=== PATIENT | female | born 1995 | race Caucasian/White ===

== ENCOUNTER 2017-12-03 10:31 | Emergency (ER) | payer BC, OTHER ==
[2017-12-03 10:50] VITALS: BP 101/71
--- NOTE | 2017-12-03 16:23 | UC ---
Geno Sarah Nilda, scribed for Phuc De Leon MD on 12/03/17 at 1104 . FLU HPI - HPI Summary HPI Summary: This patient is a 22 year old F presenting to [facility] with a chief complaint of constant flu-like symptoms since last night. The patient rates the aching pain 5 /10 in severity. Symptoms aggravated and alleviated by nothing. Patient reports body aches, rhinorrhea, sore throat, nonproductive cough, and fever (102F, last night). Flu vaccine is not UTD. - History of Current Complaint Chief Complaint: UCRespiratory Stated Complaint: FEVER, AND COUGH Time Seen by Provider: 12/03/17 10:53 Hx Obtained From: Patient Hx Last Menstrual Period: 11/21/17 Onset/Duration: Sudden Onset, Lasting Days, Still Present Severity Initially: Moderate Pain Intensity: 5 Pain Scale Used: 0-10 Numeric Associated Signs & Symptoms: Positive: Fever, T Max - 102 F, Myalgia, Cough, Sore Throat - Allergy/Home Medications Allergies/Adverse Reactions: Allergies Allergy/AdvReac Type Severity Reaction Status Date / Time MS Diphenhydramine AdvReac Intermediate BP INCREASE Verified 12/03/17 10:50 [From Benadryl] Home Medications: Home Medications Ibuprofen [Advil] 400 mg PO ONCE PRN 12/03/17 [History Confirmed 12/03/17] PMH/Surg Hx/FS Hx/Imm Hx Endocrine History: Hypothyroidism Psychological History: Anxiety, Depression - Surgical History Surgical History: Yes Surgery Procedure, Year, and Place: Tonsillectomy 2012 - Family History Known Family History: Positive: Hypertension - Social History Alcohol Use: None Substance Use Type: None Smoking Status (MU): Never Smoked Tobacco Review of Systems Constitutional: Fever ENT: Sore Throat, Nasal Discharge Respiratory: Cough Musculoskeletal: Myalgia All Other Systems Reviewed And Are Negative: Yes Physical Exam Triage Information Reviewed: Yes Vital Signs: Initial Vital Signs Temp 99.4 F 12/03/17 10:42 Pulse 107 12/03/17 10:42 Resp 16 12/03/17 10:42 BP 101/71 12/03/17 10:42 Pulse Ox 95 12/03/17 10:42 Vital Signs Reviewed: Yes - Additional Comments VITAL SIGNS: Reviewed. GENERAL: Patient is a well developed and nourished F who is lying comfortable in the stretcher. Patient is not in any acute respiratory distress. HEAD AND FACE: Normocephalic EYES: PERRLA, EOMI x 2. EARS: Hearing grossly intact. NOSE: Runny nose MOUTH: pharyngeal erythema NECK: Supple, trachea is midline, no adenopathy, no JVD, no carotid bruit. CHEST: Symmetric, no tenderness at palpation LUNGS: Clear to auscultation bilaterally. No wheezing or crackles. CVS: Regular rate and rhythm, S1 and S2 present, no murmurs or gallops appreciated. ABDOMEN: Soft, non-tender. Bowel sounds are normal. No abdominal abnormal pulsations. EXTREMITIES: Full ROM in all major joints, no edema, no cyanosis or clubbing. NEURO: Alert and oriented x 3. No acute neurological deficits. Speech is normal and follows commands. SKIN: Dry and warm Re-Evaluation - Re-Evaluation First Eval Re-Evaluation Time: 11:19 Comment: Reviewed test results with patient as well as plan to D/C. Flu Course/Dx - Course Course Of Treatment: This patient is a 22 year old F presenting to [facility] with a chief complaint of constant flu-like symptoms since last night. The patient rates the aching pain 5/10 in severity. Symptoms aggravated and alleviated by nothing. Patient reports body aches, rhinorrhea, sore throat, nonproductive cough, and fever (102F, last night). Flu vaccine is not UTD. Influenza A positive. Influenza B negative. Medications given. I discussed all the findings and test results with the patient. Patient was instructed to return to the urgent care or go to ER immediately if any of the symptoms return or worsens. Plan of care was discussed with the patient and patient understands and agrees. All questions were answered to patient satisfaction. There were no further complaints or concerns. Patient is D/C with Dx of influenza. - Differential Dx/Diagnosis Differential Diagnosis/HQI/PQRI: Bronchitis, Broncholiolitis, Influenza, Pneumonia, Upper Respiratory Infection Provider Diagnoses: influenza Discharge - Discharge Plan Condition: Stable Disposition: HOME Prescriptions: Oseltamivir CAP* [Tamiflu CAP*] 75 mg PO BID #10 cap Patient Education Materials: Influenza (ED) Referrals: Chip Abraham MD [Primary Care Provider] - Additional Instructions: Take medications as instructed Increase your fluid intake Return to the if symptoms worsen The documentation as recorded by the scribGeno dawn Nilda accurately reflects the service I personally performed and the decisions made by me, Phuc De Leon MD.
== END 2017-12-03 11:30 | disposition home or self-care (01) ==
LOC: UCEAST 10:31
DX: J11.1 Influenza due to unidentified influenza virus with other respiratory manifestations (principal); E03.9 Hypothyroidism, unspecified
CPT/HCPCS: 87502; 99212; G0463

== ENCOUNTER 2018-10-09 10:23 | Emergency (ER) | payer BC ==
[2018-10-09 10:36] VITALS: BP 109/64
--- NOTE | 2018-10-09 11:36 | ED ---
Respiratory - HPI Summary HPI Summary: 22 yo white female c/o nasal congestion, sinus pain and yellow d/c x weeks that is worsening associated withmylagias, f/c/n/v. Denies cough - History of Current Complaint Chief Complaint: UCRespiratory Stated Complaint: CONGESTED,VOMITING Time Seen by Provider: 10/09/18 11:01 Hx Obtained From: Patient Onset/Duration: Lasting Weeks Initial Severity: Moderate Current Severity: Severe Pain Intensity: 0 Sputum Amount: None Aggravating Factor(s): Nothing Alleviating Factor(s): Nothing Associated Signs and Symptoms: Fever, Sinus Infection, Nasal Congestion - Allergy/Home Medications Allergies/Adverse Reactions: Allergies Allergy/AdvReac Type Severity Reaction Status Date / Time diphenhydramine Allergy htn Verified 10/09/18 10:36 [From Charles] PMH/Surg Hx/FS Hx/Imm Hx Endocrine/Hematology History: Reports: Hx Thyroid Disease - hypo Respiratory History: Reports: Hx Sleep Apnea - POSSIBLE Sensory History: Reports: Hx Contacts or Glasses Denies: Hx Hearing Aid Opthamlomology History: Reports: Hx Contacts or Glasses Neurological History: Reports: Hx Headaches, Hx Migraine - 1 Q 3 MONTHS Psychiatric History: Reports: Hx Anxiety - ON MEDS, Hx Depression - ON MEDS - Surgical History Surgery Procedure, Year, and Place: Tonsillectomy 2013 Hx Anesthesia Reactions: No Infectious Disease History: No Infectious Disease History: Denies: Traveled Outside the [place] in Last 30 Days - Family History Known Family History: Positive: Hypertension - Social History Alcohol Use: None Substance Use Type: Reports: None Smoking Status (MU): Never Smoked Tobacco Review of Systems Constitutional: Negative Eyes: Negative ENT: Other - SINUS INFECTION Positive: Nasal Discharge Cardiovascular: Negative Respiratory: Negative Gastrointestinal: Negative Genitourinary: Negative Musculoskeletal: Negative Skin: Negative Neurological: Negative All Other Systems Reviewed And Are Negative: Yes Physical Exam - Summary Physical Exam Summary: Vital Signs Reviewed: Yes Skin: Positive: Warm Head/Face: Positive: Normal Head/Face Inspection Eyes: Positive: Normal ENT: Positive: swollen eyrthematous turbinates with purulent d/c, TM WNL Neck: Positive: Supple Respiratory/Lung Sounds: Positive: Clear to Auscultation Cardiovascular: Positive: Normal, RRR, S1, S2 Abdomen Description: Positive: Nontender Musculoskeletal: Positive: Normal Neurological: Positive: Normal Psychiatric: Positive: Normal, Affect/Mood Appropriate Vital Signs On Initial Exam: Initial Vitals Temp Pulse Resp BP Pulse Ox 37.2 C 102 20 109/64 99 10/09/18 10:34 10/09/18 10:34 10/09/18 10:34 10/09/18 10:34 10/09/18 10:34 Diagnostics - Vital Signs Vital Signs Temp Pulse Resp BP Pulse Ox 10/09/18 10:34 37.2 C 102 20 109/64 99 - Laboratory Lab Statement: Any lab studies that have been ordered have been reviewed, and results considered in the medical decision making process. Disposition - Diagnoses Provider Diagnoses: Recurrent sinus infections, Fever and chills Discharge - Sign-Out/Discharge Documenting (check all that apply): Patient Departure All imaging exams completed and their final reports reviewed: Yes - Discharge Plan Condition: Stable Disposition: HOME Prescriptions: Cefuroxime 500 MG(NF) 500 mg PO BID 14 Days #1 tab Fluticasone NASAL SPRAY 50MCG* [Flonase NASAL SPRAY 50MCG*] 2 spray BOTH NARES DAILY 7 Days #1 btl Patient Education Materials: Sinusitis (ED), Rhinosinusitis (ED) Forms: *Work Release Referrals: Chip Abraham MD [Primary Care Provider] - - Billing Disposition and Condition Condition: STABLE Disposition: Home
== END 2018-10-09 11:44 | disposition home or self-care (01) ==
LOC: UCEAST 10:23
DX: J01.91 Acute recurrent sinusitis, unspecified (principal); R50.9 Fever, unspecified; I10 Essential (primary) hypertension; Z88.8 Allergy status to other drugs, medicaments and biological substances
CPT/HCPCS: 99212; G0463

== ENCOUNTER 2019-09-04 12:19 | Emergency (ER) | payer BC ==
[2019-09-04 12:33] VITALS: BP 112/68
[2019-09-04] MEDS ORDERED: Ondansetron ODT TAB* 4 MG PO ONE ×2 (12:46→14:15)
--- NOTE | 2019-09-04 12:46 | UC ---
Headache HPI - HPI Summary HPI Summary: Onset of right sided headache 5 days ago, awoke with it, with progression of pain. Has nausea and light sensitivity, with onset of vomiting yesterday, with several episodes today. No previous history of migraine - History Of Current Complaint Chief Complaint: UCHeadache Stated Complaint: HEADACHE Time Seen by Provider: 09/04/19 12:39 Hx Obtained From: Patient Hx Last Menstrual Period: 08/29/19 Onset/Duration: Sudden Onset Onset Of Symptoms: Still Present Initially Headache Was: "Worst Headache Ever" Pain Intensity: 10 Timing: Constant Character: Migraine - Assesses this a a migraine headache, although she has no prior diagnosis Location of Headache: Temporal - right Aggravating Factor(s): Exertion, Position Change, Bright Lights Allevating Factor(s): Rest Associated Signs And Symptoms: Positive: Nausea, Vomiting. Negative: Neck Pain , Neck Stiffness - Risk Factors SAH Risk Factors: Negative Meningitis Risk Factors: Negative SDH Risk Factors: Negative Temporal Arteritis Risk Factors: Female - Allergies/Home Medications Allergies/Adverse Reactions: Allergies Allergy/AdvReac Type Severity Reaction Status Date / Time diphenhydramine Allergy htn Verified 09/04/19 12:27 [From Benadryl] Home Medications: Home Medications Escitalopram * [Lexapro *] 25 mg PO DAILY 09/04/19 [History Confirmed 09/04/19] PMH/Surg Hx/FS Hx/Imm Hx Previously Healthy: Yes Psychological History: Depression - Surgical History Surgical History: Yes Surgery Procedure, Year, and Place: Tonsillectomy 2012 - Family History Known Family History: Positive: Hypertension, Other - sister has migrane. - Social History Occupation: Employed Full-time Alcohol Use: None Substance Use Type: None Smoking Status (MU): Never Smoked Tobacco Review of Systems All Other Systems Reviewed And Are Negative: Yes Constitutional: Positive: Fatigue Skin: Positive: Negative Eyes: Positive: Blurred Vision - right eye ENT: Positive: Negative Respiratory: Positive: Negative Cardiovascular: Positive: Negative Gastrointestinal: Positive: Vomiting, Nausea Genitourinary: Positive: Negative, Other - recent normal menses, no contraceptive use Motor: Positive: Negative Neurovascular: Positive: Other - diffuse bilateral paresthesias arms and legs Musculoskeletal: Positive: Negative Neurological: Positive: Headache, Paresthesia Psychological: Positive: Negative Is Patient Immunocompromised?: No Physical Exam Triage Information Reviewed: Yes Appearance: Well-Appearing, Pain Distress - moderate to severe Vital Signs: Initial Vital Signs Temp 98.2 F 09/04/19 12:28 Pulse 82 09/04/19 12:28 Resp 18 09/04/19 12:28 BP 112/68 09/04/19 12:28 Pulse Ox 100 09/04/19 12:28 Eye Exam: Other - JENNIFER without photophobia. Eyes: Positive: Conjunctiva Clear ENT: Positive: Pharynx normal Neck: Positive: Supple, Nontender, No Lymphadenopathy Respiratory: Positive: Lungs clear, Normal breath sounds Cardiovascular: Positive: RRR, No Murmur Abdomen Description: Positive: Nontender, No Organomegaly, Soft Musculoskeletal Exam: Normal Musculoskeletal: Positive: Strength Intact Neurological Exam: Other - CNII-XII normal. No pronator drift. Negative Romberg' s. Neurological: Positive: Alert, Muscle Tone Normal Psychological Exam: Normal Re-Evaluation - Re-Evaluation First Eval Re-Evaluation Time: 14:05 Change: Improved Comment: nausea decreased but no improvement in headache. Headache Course/Dx - Course Course Of Treatment: Clincal course consistent with classic migraine. Has not responded to use of zofran and toradol. Will continue with zofran, try hydrocodone to break migraine cycle. Reluctant to use triptan due to use of escitaloprim. Drove alone to visit, so medication options restricted by sedation. - Differential Dx/Diagnosis Differential Diagnosis/HQI/PQRI: Migraine, Temporal Arteritis Provider Diagnosis: Migraine Discharge ED - Sign-Out/Discharge Documenting (check all that apply): Patient Departure All imaging exams completed and their final reports reviewed: Yes - Discharge Plan Condition: Stable Disposition: HOME Patient Education Materials: Migraine Headache (ED) Forms: *Work Release Referrals: No Primary Care Phys,NOPCP [Primary Care Provider] - Additional Instructions: To break the headache cycle, please try the following: once at home, take an additional dose of zofran 4mg. After about 15 minutes, take 2 hydrocodone tablets. This will likely cause drowsiness, and resting/ sleeping for several hours would be helpful. Eat lightly. Schedule a follow up visit with your primary care physician later this week to discuss migraine management. - Billing Disposition and Condition Condition: STABLE Disposition: Home
[2019-09-04] MEDS ORDERED: Ketorolac *IM* INJ* 60 MG/2 ML VIAL IM ONE (12:47)
[2019-09-04] MEDS ORDERED: Ondansetron TAB* 4 MG PO ONE (12:50)
[2019-09-04] MEDS ORDERED: Ondansetron ODT TAB* 4 MG ONE (13:33)
[2019-09-04] MEDS ORDERED: HYDROcodone/ACETAMIN 5-325 MG* 1 TAB PO ONE (14:16)
== END 2019-09-04 14:47 | disposition home or self-care (01) ==
LOC: UCEAST 12:19
DX: G43.909 Migraine, unspecified, not intractable, without status migrainosus (principal); F32.9 Major depressive disorder, single episode, unspecified; Z79.899 Other long term (current) drug therapy; Z88.8 Allergy status to other drugs, medicaments and biological substances; Z82.0 Family history of epilepsy and other diseases of the nervous system
CPT/HCPCS: 70450; 99212; A9270-GY; G0463; J1885

== ENCOUNTER 2019-09-11 17:19 | Emergency (ER) | payer BC ==
--- NOTE | 2019-09-11 19:11 | ED ---
Headache - HPI Summary HPI Summary: Patient is a 23 y/o F presenting to the ED for a chief complaint of headache. Patient is present with her grandparents. Patient states that on 08/28/19, her symptoms began after cleaning her carpet with shampoo. Since then, she reports intermittent vision loss in the right eye, blurred vision, nausea, vomiting, and right-sided neck pain. In the morning, she has bilateral LE and UE weakness and bilateral UE numbness which resolves. She denies fever, diarrhea, or constipation. When she goes inside her house from being outside, her symptoms worsen. Her symptoms improve after being away from her house. She was previously seen at an urgent care and her PCP. At that time, she had a brain CT with unremarkable findings. LNMP was on 09/01/19. Patient lives alone. She has a carbon monoxide monitor at home. She denies a PMHx or tick bites. PSHx is significant for tonsillectomy. She denies tobacco, alcohol, or drug use. Medications reviewed. Allergies noted. - History Of Current Complaint Chief Complaint: EDHeadache Stated Complaint: GENERAL ILLNESS PER PT Time Seen by Provider: 09/11/19 18:49 Hx Obtained From: Patient Hx Last Menstrual Period: 08/29/19 Onset/Duration: Sudden Onset, Still Present Initially Headache Was: Moderate Currently Pain Is: Moderate Timing: Constant Location of Headache: Frontal Aggravating Factor: Other - Being at home Allevating Factors: Other (Noted In Comments) - Leaving home Associated Signs And Symptoms: Nausea, Vomiting, Neck Pain, Visual Changes - Allergies/Home Medications Allergies/Adverse Reactions: Allergies Allergy/AdvReac Type Severity Reaction Status Date / Time diphenhydramine Allergy htn Verified 09/04/19 12:27 [From Benadryl] PMH/Surg Hx/FS Hx/Imm Hx Previously Healthy: Yes Endocrine/Hematology History: Reports: Hx Thyroid Disease - hypo Denies: Hx Diabetes Cardiovascular History: Denies: Hx Hypercholesterolemia, Hx Hypertension Respiratory History: Reports: Hx Sleep Apnea - POSSIBLE Sensory History: Reports: Hx Contacts or Glasses Denies: Hx Legally Blind, Hx Deafness, Hx Hearing Aid Opthamlomology History: Reports: Hx Contacts or Glasses Denies: Hx Legally Blind EENT History: Denies: Hx Deafness Neurological History: Reports: Hx Headaches, Hx Migraine - 1 Q 3 MONTHS Psychiatric History: Reports: Hx Anxiety - ON MEDS, Hx Depression - ON MEDS - Surgical History Surgical History: Yes Surgery Procedure, Year, and Place: Tonsillectomy 2012 Hx Anesthesia Reactions: No - Immunization History Date of Tetanus Vaccine: utd Date of Influenza Vaccine: fall 2017 Infectious Disease History: No Infectious Disease History: Denies: Traveled Outside the [place] in Last 30 Days - Family History Known Family History: Positive: Hypertension, Other - sister has migrane. - Social History Occupation: Employed Full-time Lives: Alone Alcohol Use: Rare Hx Substance Use: No Substance Use Type: Reports: None Hx Tobacco Use: No Smoking Status (MU): Never Smoked Tobacco Review of Systems Negative: Fever Positive: Blurred Vision - Right eye, Other - Positive intermittent vision loss in right eye Positive: Vomiting, Nausea, Other - Negative constipation. Negative: Diarrhea Positive: Myalgia - Right-sided neck pain Positive: Headache, Weakness - Bilateral UE and LE, Numbness - Bilateral UE All Other Systems Reviewed And Are Negative: Yes Physical Exam - Summary Physical Exam Summary: Constitutional: Well-developed, Well-nourished, Alert. (-) Distressed Skin: Warm, Dry HENT: Normocephalic; Atraumatic Eyes: Conjunctiva normal Neck: Musculoskeletal ROM normal neck. (-) JVD, (-) Stridor, (-) Tracheal deviation Cardio: Rhythm regular, rate normal, Heart sounds normal; Intact distal pulses; Radial pulses are 2+ and symmetric. (-) Murmur Pulmonary/Chest wall: Effort normal. (-) Respiratory distress, (-) Wheezes, (-) Rales Abd: Soft, (-) tenderness, (-) Distension, (-) Guarding, (-) Rebound Musculoskeletal: (-) Edema Lymph: (-) Cervical adenopathy Neuro: Alert, Oriented x3 Psych: Mood and affect Normal Triage Information Reviewed: Yes Vital Signs On Initial Exam: Initial Vitals Temp Pulse Resp BP Pulse Ox 97.3 F 66 18 136/71 100 09/11/19 17:20 09/11/19 17:20 09/11/19 17:20 09/11/19 17:20 09/11/19 17:20 Vital Signs Reviewed: Yes Procedures - Sedation Patient Received Moderate/Deep Sedation with Procedure: No Diagnostics - Vital Signs Vital Signs Temp Pulse Resp BP Pulse Ox 09/11/19 17:20 97.3 F 66 18 136/71 100 - Laboratory Result Diagrams: 09/11/19 19:22 09/11/19 19:22 Lab Statement: Any lab studies that have been ordered have been reviewed, and results considered in the medical decision making process. Headache Course/Dx - Course Course Of Treatment: Patient is here with headaches that are worse in the morning and only occur at home. Patient wakes up with numbness and discoordination in all 4 of her extremities. The symptoms all go away when she leaves the house. Patient has had a negative CT brain as an outpatient. Patient is asymptomatic with a normal neurologic exam here. Patient had a CBC, CMP, TSH, test, B12 level sent. Patient's labs were all unremarkable. Patient was encouraged to check her carbon monoxide detector, try sleeping at someone else's house to see if her symptoms go away, and was given Dr. Lopes's number for follow-up. - Diagnoses Provider Diagnoses: Headache Discharge ED - Sign-Out/Discharge Documenting (check all that apply): Patient Departure - Discharge - Discharge Plan Condition: Stable Disposition: HOME Patient Education Materials: General Headache (ED) Referrals: [facility] [Outside] Robyn Guerrero MD [Medical Doctor] - Additional Instructions: Do an experiment of spending the night in someone else's house to see if it improves your headache. Make sure the carbon dioxide detector at home is working. Come back if you have weakness on one side of your body, slurred speech , or any other concerning symptoms. PLEASE RETURN TO EMERGENCY DEPARTMENT FOR ANY NEW OR WORSENING SYMPTOMS. Please follow up with your primary care physician and a neurologist. Please make all follow-ups in 1-3 days unless I advise you otherwise. - Billing Disposition and Condition Condition: STABLE Disposition: Home - Attestation Statements Document Initiated by Scribe: Yes Documenting Scribe: Shruthi Peter Provider For Whom Tara is Documenting (Include Credential): Kiran Maldonado MD Scribe Attestation: Shruthi Sarah, scribed for Kiran Maldonado MD on 09/11/19 at 2110. Scribe Documentation Reviewed: Yes Provider Attestation: The documentation as recorded by the Shruthi ugarte accurately reflects the service I personally performed and the decisions made by me, Kiran Maldonado MD Status of Scribe Document: Viewed NIH Scale - NIH Scale Level of Consciousness: Alert/Keenly Responsive Ask Patient the Month and His/Her Age: Both Correct Ask Pt to Open/Close Eyes and [employer] Clerk/Release Non-Paretic Hand: Both Correctly Best Gaze (Only Horizontal Eye Movement): Normal Visual Field Testing: No Visual Loss Facial Paresis-Pt to Smile & Close Eyes or Grimace Symmetry: Normal/Symmetrical Motor Function - Right Arm: No Drift-Holds 10 Seconds Motor Function - Left Arm: No Drift-Holds 10 Seconds Motor Function - Right Leg: No Drift-Holds 10 Seconds Motor Function - Left Leg: No Drift-Holds 10 Seconds Limb Ataxia-Must be out of Proportion to Weakness Present: Absent Sensory (Use Pinprick to Test Arms/Legs/Trunk/Face): Normal Best Language (Describe Picture, Name Items): No Aphasia Dysarthria (Read Several Words): Normal Extinction and Inattention: No Abnormality Total Score: 0
[2019-09-11 19:28] LABS: ABS Basophils 0.1 10^3/ul (0-0.2); ABS Eosinophils 0.1 10^3/ul (0-0.6); ABS Monocytes 0.7 10^3/ul (0-0.8); ABS Neutrophils 6.6 10^3/ul (1.5-7.7); Eosinophil % 0.5 %; Hematocrit 41 % (35-47); Hemoglobin 14.3 g/dL (12.0-16.0); Lymphocyte % 21.1 %; Mean Corpuscular HGB Conc 35 g/dL (31-36); Mean Corpuscular Hemoglobin 31 pg (27-31); Mean Corpuscular Volume 87 fL (80-97); Mean Platelet Volume 8.8 fL (7.4-10.4); Nucleated Red Blood Cells % 0.1; Platelet Count 249 10^3/uL (150-450); Red Cell Distribution Width 12 % (10-15); White Blood Count 9.5 10^3/uL (3.5-10.8)
[2019-09-11 19:42] LABS: Albumin 5.2 g/dL (3.2-5.2); Anion Gap 6 mmol/L (2-11); CO2 Carbon Dioxide 30 mmol/L (22-32); Calcium 10.4 mg/dL (8.6-10.3); Chloride 102 mmol/L (101-111); Sodium 138 mmol/L (135-145)
[2019-09-11 19:48] LABS: ALT 12 U/L (7-52); AST 14 U/L (13-39); Albumin/Globulin Ratio 1.9 (1-3); Alkaline Phosphatase 72 U/L (34-104); BUN/Creatinine Ratio 14.9 (8-20); Blood Urea Nitrogen 10 mg/dL (6-24); EGFR African American 130.8 (>60); EGFR Non-African American 108.1 (>60); Globulin 2.7 g/dL (2-4); Glucose 87 mg/dL (70-100); Total Protein 7.9 g/dL (6.4-8.9)
[2019-09-11 20:44] LABS: HCG Pregnancy < 0.60 mIU/mL
[2019-09-11 20:47] LABS: TSH (Thyroid Stimulating Horm) 1.03 mcIU/mL (0.34-5.60)
[2019-09-11 20:57] VITALS: BP 118/75
== END 2019-09-11 20:57 | disposition home or self-care (01) ==
LOC: ED 17:19
DX: R51 Headache (principal); E03.9 Hypothyroidism, unspecified; F41.9 Anxiety disorder, unspecified; F32.9 Major depressive disorder, single episode, unspecified; Z79.899 Other long term (current) drug therapy; Z88.8 Allergy status to other drugs, medicaments and biological substances
CPT/HCPCS: 36415; 80053; 82375; 82607; 84443; 84702; 85025; 99282

== ENCOUNTER 2019-09-12 11:38 | Observation (INO) | payer BC ==
[2019-09-12] MEDS ORDERED: Ketorolac INJ* 30 MG/ML 1 ML VIAL IV ONE (11:51)
[2019-09-12] MEDS ORDERED: Metoclopramide IV* 5 MG/ML 2 ML VIAL IV ONE (11:51)
[2019-09-12] MEDS ORDERED: NS 0.9% 1000 ML** 1,000 ML IV ONE (11:51)
--- NOTE | 2019-09-12 11:51 | ED ---
Headache - HPI Summary HPI Summary: The patient is a 23 y/o F arriving by ambulance to [facility] with a chief complaint of intermittent headaches for the last two weeks. She reports that she starting having headaches two weeks ago, and she has since been experiencing nausea, vomiting, blurred vision, neck pain, photophobia, and subjective fever without measurement. She also notes numbness with the left hand when driving. Currently , her symptoms are rated 8/10 in severity. She has never experienced headaches like this before, although she has had them in the past. LNMP: 09/01/19. PMHx: thyroid disease, anxiety, depression, tonsillectomy. FHx: migraines. Nonsmoker, rare EtOH, no substance use. Medications reviewed. Allergies noted. - History Of Current Complaint Stated Complaint: MIGRAINE PER EMS Time Seen by Provider: 09/12/19 11:41 Hx Obtained From: Patient Hx Last Menstrual Period: 08/29/19 Onset/Duration: Started weeks ago - two, Still Present Initially Headache Was: Moderate Currently Pain Is: Current Pain Scale(0-10)= - 8 Timing: Intermittent, Lasting:, Hours Character: Throbbing Location of Headache: Diffuse Aggravating Factor: Nothing Allevating Factors: Nothing Associated Signs And Symptoms: Nausea, Vomiting, Fever - subjective, Neck Pain, Visual Changes - photophobia, blurred vision, Other (Noted In Comments) - left hand numbness - Allergies/Home Medications Allergies/Adverse Reactions: Allergies Allergy/AdvReac Type Severity Reaction Status Date / Time diphenhydramine Allergy htn Verified 09/12/19 11:49 [From Benadryl] PMH/Surg Hx/FS Hx/Imm Hx Endocrine/Hematology History: Reports: Hx Thyroid Disease - hypo Denies: Hx Diabetes Cardiovascular History: Denies: Hx Hypercholesterolemia, Hx Hypertension Respiratory History: Reports: Hx Sleep Apnea - POSSIBLE Sensory History: Reports: Hx Contacts or Glasses Denies: Hx Legally Blind, Hx Deafness, Hx Hearing Aid Opthamlomology History: Reports: Hx Contacts or Glasses Denies: Hx Legally Blind Neurological History: Reports: Hx Headaches, Hx Migraine - 1 Q 3 MONTHS Psychiatric History: Reports: Hx Anxiety - ON MEDS, Hx Depression - ON MEDS - Surgical History Surgical History: Yes Surgery Procedure, Year, and Place: Tonsillectomy 2013 Hx Anesthesia Reactions: No - Immunization History Date of Tetanus Vaccine: utd Date of Influenza Vaccine: fall 2017 Infectious Disease History: No - Family History Known Family History: Positive: Hypertension, Other - sister has migrane. - Social History Alcohol Use: Rare Hx Substance Use: No Substance Use Type: Reports: None Hx Tobacco Use: No Smoking Status (MU): Never Smoked Tobacco Review of Systems Positive: Fever Positive: Photophobia, Blurred Vision Positive: Myalgia - neck pain Positive: Headache, Numbness - left hand All Other Systems Reviewed And Are Negative: Yes Physical Exam - Summary Physical Exam Summary: VITAL SIGNS: Reviewed. GENERAL: Patient is a well-developed and nourished female who is lying comfortable in the stretcher. Patient is not in any acute respiratory distress. HEAD AND FACE: No signs of trauma. No ecchymosis, hematomas or skull depressions. No sinus tenderness. EYES: PERRLA, EOMI x 2, No injected conjunctiva, no nystagmus. No photophobia. EARS: Hearing grossly intact. Ear canals and tympanic membranes are within normal limits. MOUTH: Oropharynx within normal limits. NECK: Supple, trachea is midline, no adenopathy, no JVD, no carotid bruit, no c- spine tenderness, neck with full ROM. No meningeal signs, no Kernig's or brudzinskis signs. CHEST: Symmetric, no tenderness at palpation. LUNGS: Clear to auscultation bilaterally. No wheezing or crackles. CVS: Regular rate and rhythm, S1 and S2 present, no murmurs or gallops appreciated. ABDOMEN: Soft, non-tender. No signs of distention. No rebound, no guarding, and no masses palpated. Bowel sounds are normal. EXTREMITIES: FROM in all major joints, no edema, no cyanosis or clubbing. NEURO: Alert and oriented x 3. No acute neurological deficits. Speech is normal and follows commands. SKIN: Dry and warm. GCS: 15. Triage Information Reviewed: Yes Vital Signs Reviewed: Yes - Domingo Coma Scale Best Eye Response: 4 - Spontaneous Best Motor Response: 6 - Obeys Commands Best Verbal Response: 5 - Oriented Coma Scale Total: 15 Procedures - Sedation Patient Received Moderate/Deep Sedation with Procedure: No Diagnostics - Laboratory Result Diagrams: 09/12/19 12:20 09/12/19 12:20 Lab Statement: Any lab studies that have been ordered have been reviewed, and results considered in the medical decision making process. Headache Course/Dx - Course Assessment/Plan: This patient is a 23-year-old female who presents to the emergency department with a chief complaint of a headache. Patient is having a headache for the last 2 weeks. She reports photophobia, nausea, and vomiting. She denies any fever. Blood work without any significant abnormality. The patient was given Reglan, Toradol and IV fluids. At this time I discussed my physical findings and with Dr. Guerrero from neurology, and he recommends admission to the hospitalist for further workup and management. I discussed my physical exam and test results with Dr. Meléndez from the hospitalist services, and she agrees to admit the patient to his services. The patient is hemodynamically stable alert and oriented x 3. - Diagnoses Differential Diagnosis/HQI/PQRI: Meningitis, Migraine, Sinus Headache, Temporal Arteritis, Tension Headache, Viral Syndrome Provider Diagnoses: Headache - Physician Notifications Discussed Care Of Patient With: Robyn Guerrero - neurology Time Discussed With Above Provider: 13:30 Instructed by Provider To: Other - I spoke with Dr. Guerrero, and he will come see the patient in the ED. After consulting for the patient, he states that the patient should be admitted for a LP and MRI. Dr. Meléndez accepted the patient for admission at 1440. Discharge ED - Sign-Out/Discharge Documenting (check all that apply): Patient Departure - Patient accepted for admission by Dr. Meléndez. - Discharge Plan Condition: Improved Disposition: ADMITTED TO [facility] - Billing Disposition and Condition Condition: IMPROVED Disposition: Admitted to [facility] - Attestation Statements Document Initiated by Tara: Yes Documenting Scribe: Colette Aguilar Provider For Whom Tara is Documenting (Include Credential): Dr. Phuc De Leon MD Scribe Attestation: I, Colette Aguilar, scribed for Dr. Phuc De Leon MD on 09/13/19 at 1846. Scribe Documentation Reviewed: Yes Provider Attestation: The documentation as recorded by the Colette ugarte accurately reflects the service I personally performed and the decisions made by me, Dr. Phuc De Leon MD Status of Scribe Document: Viewed
[2019-09-12 12:32] LABS: ABS Basophils 0.1 10^3/ul (0-0.2); ABS Lymphocytes 0.9 10^3/ul (1.0-4.8); ABS Monocytes 0.3 10^3/ul (0-0.8); ABS Neutrophils 8.2 10^3/ul (1.5-7.7); Eosinophil % 0.1 %; Hematocrit 40 % (35-47); Hemoglobin 14.1 g/dL (12.0-16.0); Lymphocyte % 9.5 %; Mean Corpuscular HGB Conc 35 g/dL (31-36); Mean Corpuscular Hemoglobin 31 pg (27-31); Mean Corpuscular Volume 87 fL (80-97); Mean Platelet Volume 9.3 fL (7.4-10.4); Platelet Count 241 10^3/uL (150-450); Red Blood Count 4.59 10^6 /uL (3.70-4.87); Red Cell Distribution Width 12 % (10-15); White Blood Count 9.5 10^3/uL (3.5-10.8)
[2019-09-12 12:54] LABS: Albumin 4.8 g/dL (3.2-5.2); Albumin/Globulin Ratio 1.8 (1-3); BUN/Creatinine Ratio 15.9 (8-20); Calcium 9.8 mg/dL (8.6-10.3); EGFR African American 140.5 (>60); EGFR Non-African American 116.1 (>60); Globulin 2.6 g/dL (2-4); Potassium 3.8 mmol/L (3.5-5.0); Total Bilirubin 0.8 mg/dL (0.2-1.0); Total Protein 7.4 g/dL (6.4-8.9)
[2019-09-12] MEDS ORDERED: Cyanocobalamin INJ * 1,000 MCG/ML VIAL 1 ML VIAL IM ONE (13:34)
[2019-09-12 13:54] LABS: Erythrocyte Sed Rate 10 mm/Hr (0-19)
[2019-09-12] MEDS ORDERED: Magnesium Sulfate 2 GM IV* 2 GM/50 ML BAG IVPB ONE (15:26)
--- NOTE | 2019-09-12 15:39 | CONS ---
NEUROLOGY CONSULTATION NOTE: DATE OF CONSULT: 09/12/19 CONSULTING PROVIDER: Dr. De Leon. REASON FOR CONSULT: Headaches. CHIEF COMPLAINT: Headaches. HISTORY OF PRESENT ILLNESS: Ms. Tg Coleman is a 23-year-old female with history of reported depression and anxiety, hypothyroidism, who presented to [facility] for the second time in 3 days for symptoms of headaches. The patient stated that she started having headaches 2 weeks ago. She stated that the pain was mostly sharp in nature, located in the bottom of the right eye radiating to the back of the neck. The pain is also stabbing occasionally and is 8/10 in severity. The pain does not fluctuate. It is worse in the morning and also at night. She has photo and phonophobia associated with the pain. She has nausea. Her sister has migraine headaches. Coughing, sneezing, or straining does worsen her pain. She has not had any weight gain over the past few months. She denied any tinnitus or diplopia. Occasionally, over the past few weeks she has been waking up with numbness over the left side of her body including the face. The numbness usually last for a few minutes. She also has some fatigue in the lower extremities. She has been to [facility] on 09/11/19 and was discharged after CT of the head was unremarkable. She initially went to an urgent care visit on 09/04/19, where she had a CT of head without contrast. She was referred to come to the ED for further evaluation where she came on 09/11/19. She was discharged again to come back again today. She did have a CT head without contrast that I personally reviewed that showed no evidence of acute intracranial abnormality. This was done on 09/04/19. The patient has tried ibuprofen, Excedrin, and naproxen with minimal to no improvement. She has not taken any medications for the past 2 days because she has been constantly vomiting. Her primary care provider Dr. Colunga recommended that she come to the ED for IV fluid and she appeared to be dehydrated. The patient did not report to me today that she feels depressed and anxious because she does not know what is going on with her. She has been going home from work due to the pain for the past 2 weeks. She also stated that when driving her left arm goes numb. This has been ongoing for the last few days. She has fallen a few times. She denied any head injury or loss of consciousness. PAST MEDICAL HISTORY: Depression, anxiety, hypothyroidism. She is to see a psychiatrist when she was in high school. MEDICATIONS: She is on: 1. Lexapro 25 mg p.o. daily. 2. Levothyroxine 25 mcg p.o. daily. ALLERGIES: BENADRYL. FAMILY HISTORY: No history of stroke or seizures. Her sister suffers from migraine headaches. 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 She denied any tobacco use. She denied any drugs. She denies any alcohol use. She lives alone. She plans on celebrating Thanksgiving with her aunt and uncle. Her parents live in [place]. REVIEW OF SYSTEMS: A 14-point review of systems was obtained and otherwise negative except for what was mentioned in the HPI. PHYSICAL EXAM: Vitals: Temperature of 98.4, pulse of 77, respiratory rate of 16, oxygen saturation of 98, blood pressure of 108/50. General: Well- appearing and well-nourished female, in no acute distress. HEENT: Head: Atraumatic and normocephalic without any obvious abnormality. Neck is supple and symmetrical with no carotid bruits. She has no nuchal rigidity. She does complain of slight pain to neck flexion but without any restricted range of motion. Eyes: Conjunctivae/corneas are clear. Funduscopic examination was difficult to perform due to severe photophobia, but there was no clear evidence of blurring of the disc margins. Chest: Clear to auscultation bilaterally. Cardiovascular: Regular rate and rhythm with normal S1, S2. Extremities: Normal range of motion with no cyanosis or edema. Skin: No skin lesions or laceration. Gait: Narrow based normal stance and gait. No ataxia. Psychiatric: Flat affect, slightly depressed. She denied any suicidal or homicidal ideation. It was easy to establish a rapport with the patient. Neurological Examination: Mental Status: Awake, alert, and oriented to person , place, time, and general circumstances. Her speech and language including comprehension and repetition were assessed and found to be normal. Cranial Nerves: Pupils are equal, round, and reactive to light. Extraocular muscles are intact. There is no loss of sensation in the face. There is no facial asymmetry. Tongue is symmetric and midline with no atrophy or fasciculation. Motor Examination: Normal tone and bulk throughout. 5/5 strength in the upper and lower extremities bilaterally. Sensation is intact to light touch throughout. Normal vibration at the toes. Normal proprioception. Coordination : Normal mmbizn-no-coaw and pvra-tu-bcoa testing. Gait: Normal stance, no ataxia. The patient reflexes 3+ throughout. Positive cross adductors. Downgoing plantar responses. No clonus. DIAGNOSTIC STUDIES/LAB DATA: The patient had a vitamin B12 checked on 09/11/19 and it was abnormal at 131. Otherwise her labs appeared to be normal. ESR is pending. ASSESSMENT AND RECOMMENDATIONS: Ms. Tg Coleman is a 23-year-old fairly healthy female with a reported history of depression, anxiety, and hypothyroidism, who was recently diagnosed with vitamin B12 deficiency, who presents with a 2-week history of constant headache associated with photophobia and nausea. The patient has a family history of migraine headaches. On neurological examination, the patient has diffuse hyperreflexia that is symmetric but no significant pathological reflexes. Overall, I suspect the patient has possibly status migrainosus, which is characterized by migraine-like headaches lasting greater than 72 hours. Risk factors for migraine age, female sex as well as family history of migraines. Other differential diagnosis, however, need to be excluded such as viral meningitis given the constant and chronicity of the symptoms, pseudotumor cerebri given the mild overweight, and other secondary rare cases such as multiple sclerosis. I recommend admitting the patient for observation. I have ordered an MRI of the brain with and without contrast to rule out for any demyelinating disease. The patient will also need a lumbar puncture preferably to be done after the MRI to check for viral or chronic meningitis. Lumbar puncture should check for cell count, diff, Gram stain, glucose, protein, IgG index, oligoclonal bands, Lyme titer. I started the patient on cyanocobalamin 100 mcg IM injection as well as to continue p.o. dosing daily. In regards to her headache, I please recommend magnesium 2 g IV x1 followed by, if the headache persist, Solu-Medrol 125 mg IV x1 with Reglan. Continue the patient on magnesium oxide 400 mg daily. Neuro checks every 4 hours. No need for PT/OT/SMALL PACKAGE AND BUNDLE SORTER CLERK evaluation and treatment as the patient has no significant motor deficits. I will continue to follow. [id number]/[facility] #: [id number] AKANKSHA
[2019-09-12 15:59] LABS: C Reactive Protein 2.26 mg/L (<8.01)
[2019-09-12] MEDS ORDERED: methylPREDNISolone 125 MG* 2 ML VIAL IV ONE (16:20)
[2019-09-12] MEDS ORDERED: Acetaminophen TAB* 325 MG PO PRN (16:26)
[2019-09-12] MEDS ORDERED: NS 0.9% 1000 ML** 1,000 ML IV SCH (16:45)
[2019-09-12 16:50] LABS: INR 1.3 (0.82-1.09)
[2019-09-12] MEDS ORDERED: Gadoteridol* (CONTRAST) 279.3 MG/ML 10 ML IV ONE (17:46)
--- NOTE | 2019-09-12 17:52 | HP ---
HISTORY AND PHYSICAL: DATE OF ADMISSION: 09/12/19 PRIMARY CARE PROVIDER: Rodolfo Colunga MD ADMITTING PROVIDER: Diego Muller MD CONSULTING NEUROLOGIST: Dr. Guerrero. CHIEF COMPLAINT: Intractable headaches, intermittent numbness and weakness in the left hand, multiple falls, intractable nausea and vomiting with an inability to keep p.o. intake. HISTORY OF PRESENT ILLNESS: Tg Coleman is a 23-year-old female with past medical history of anxiety, depression, hypothyroidism. She cleaned her carpets with a chemical solution from [employer] on 09/03/19. The next morning , she woke up with severe numbness and tingling in her left hand and also weakness in her bilateral legs. She noticed this when she fell out of bed. She developed severe headache and had multiple episodes of nausea and vomiting throughout the day. She went to urgent care, had a CT head, which showed no acute process. The nausea and vomiting continued while initially taking 2 ibuprofen every 4 hours. Eventually was not able to keep that down and since stopping taking any medications she has barely been able to keep water down. She says she is eating about 1 apple and 1 banana in the last 9 days even though she is able to keep some water down usually by the end of the day she will eventually vomit "it all up." She presented to [facility] the day prior to admission on 09/11/19. At that time, she seemed to make a correlation that her symptoms of headache had been worse when she was in the house as opposed to when she was out of the house. She was advised to try to spend the night away from her house to see if that would improve. She also was encouraged to check her carbon monoxide detector and was given Dr. Lopes's number for followup. She slept at her grandparent's house last night with no change in her symptoms, still woke up with weakness, severe headaches, nausea, and vomiting. Notably her vitamin B12 level has since returned very low at 131. Other workup was unremarkable except for calcium level of 10.4, back to normal on correction given the albumin of 5.2. She describes the headache as most severe in and behind the right eye and sometimes radiating down to the right neck. She is photophobia, phonophobia. The weakness usually resolved after about 5 minutes and usually did not return. She denies any chest pain, cough, fevers, chills, abdominal pain. She is having regular bowel movements. At [facility] on the day of admission, she was seen by Dr. Guerrero, who recommended admission for observation status and MRI of the brain to help rule out MS. Most likely, the MS was thought to be status migrainosus, also where he recommended LP to evaluate also for MS and viral meningitis. She got 1 L normal saline, 30 of ketorolac, 10 of Reglan, and 1000 mg of IV B12. Notably, she had also seen a provider at her primary care provider's office, but not Dr. Colunga and was sent by EMS as it was thought that she was not safe to drive. PAST MEDICAL HISTORY: Anxiety, depression, hypothyroidism. PAST SURGICAL HISTORY: Tonsillectomy. MEDICATIONS: Include: 1. Lexapro 25 mg daily. 2. Synthroid 25 mcg daily. She denies any dchl-csg-cyzalvb supplements or herbal supplements. ALLERGIES: BENADRYL (hives). FAMILY HISTORY: Mother and father are healthy. She has 2 older sisters. One of them had history of migraines that improved after she got a special earring. SOCIAL HISTORY: She denies ever being a smoker. Only rare alcohol use. No drug use. 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 She desires her mother, Nicole Coleman, to be her medical surrogate. She desires to be a full code. REVIEW OF SYSTEMS: A complete 14-point review of systems is negative, except as per HPI. She denies any other history of headache. She eats "everything" with no special dietary requirements. She does get burning pain in her lungs whenever she runs fast (she has played soccer for 20 years), but denies any wheezing or history of asthma. PHYSICAL EXAMINATION GENERAL APPEARANCE: No acute distress. VITAL SIGNS: Temperature 98.4, pulse rate 77, respiratory rate 16, oxygen sat 98%, blood pressure 108/50. HEENT: Normocephalic, atraumatic. Pupils are equal, round, and reactive to light. Extraocular motions are intact but with severe pain with looking to the left upper lateral quadrants bilaterally and also lesser pain in the right upper lateral quadrants. LUNGS: Clear to auscultation bilaterally with no wheezing, rales, or rhonchi. CARDIOVASCULAR: Regular rate and rhythm. No murmurs, rubs, or gallops. ABDOMEN: Soft, nontender, nondistended. No rebound, no guarding. No Liao's sign. EXTREMITIES: Warm, well perfused. No pedal edema. NEUROLOGIC: Cranial nerves II through XII intact. Ysiuxm-fq-aqfa intact. Rapid hand motion intact and graphic coordinator strength perhaps 4+ on the left hand. Otherwise strength intact, sensation intact. SKIN: No lesions or rashes. DIAGNOSTIC STUDIES/LAB DATA: White count 9.5, hemoglobin 14.1, hematocrit 40, platelets 241. Carbon dioxide less than 4. Sodium 139, potassium 3.8, chloride 104, carbon dioxide 26, BUN 10, creatinine 0.63, glucose 100, calcium 9.8, magnesium 2.0. Total bili 0.8, AST 14, ALT 12, alk phosphatase 27. CRP was added and is 2.26. Total troponin 7.4, albumin 4.8. INR was added and is pending. Imaging: None. CT head from 09/04/19 showed no acute process. ASSESSMENT AND PLAN: Tg Coleman is a 23-year-old female with past medical history of anxiety, depression, hypothyroidism presenting with 9 days of intractable headache localized behind the right eye, sometimes radiating into the right neck causing intractable nausea or vomiting associated with photophobia or phonophobia. No fevers or chills. Appreciate the recommendations by Dr. Guerrero, who recommends 2 g of magnesium now, if her pain continues with Solu-Medrol 125 mg x1 and Reglan and then magnesium oxide 400 mg daily. Neuro checks q.4 hours. He recommends MRI with and without contrast in part to help rule out MS or other obstructing causes of headache. After that, he recommends a lumbar puncture with oligoclonal bands, Lyme titers, IgG, cell count, glucose, culture, Gram stain, protein. I have ordered an INR to help facilitate or assess the safety of this. For other medical issues, continue her Lexapro and levothyroxine. Please weigh the patient to see if there is any objective evidence of weight loss over the last 9 days given her severe nausea and vomiting. She is a full code. No DVT prophylaxis other than SCDs given her low risk and pending lumbar puncture. After the MRI, she can eat an unrestricted diet. She does have evidence of severe B12 deficiency and may be risk for autoimmune conditions affecting that as she has a varied diet. We will continue the B12 supplementations. [id number]/[facility] #: [id number] AKANKSHA
[2019-09-12] MEDS: Cyanocobalamin TAB* 500 MCG PO SCH (19:14)
[2019-09-12] MEDS ORDERED: Metoclopramide IV* 5 MG/ML 2 ML VIAL IV PRN (20:00)
[2019-09-12 20:48] LABS: Body Fluid Source Cerebral Spinal
[2019-09-12 21:02] LABS: CSF Glucose 62 mg/dL (40-70)
[2019-09-12 22:36] LABS: Body Fluid Mono 3 %
[2019-09-12] MEDS: ValACYclovir (*) 1 GM TAB PO SCH (23:46)
[2019-09-13] MEDS ORDERED: Levothyroxine TAB* 25 MCG TAB PO SCH (06:00)
[2019-09-13 07:53] VITALS: BP 96/49
[2019-09-13] MEDS: ValACYclovir (*) 1 GM TAB PO SCH (07:56)
[2019-09-13] MEDS: Cyanocobalamin TAB* 500 MCG PO SCH (07:56)
[2019-09-13] MEDS ORDERED: Magnesium Oxide TAB* 400 MG PO SCH (09:00)
[2019-09-13] MEDS ORDERED: Escitalopram * 20 MG TABLET PO SCH (09:00)
--- NOTE | 2019-09-13 11:27 | PN ---
Subjective Date of Service: 09/13/19 Length of Stay: 1 Days Neurology is following for headaches. Interval History: She has no headaches. Her headaches completely resolved last night after the IV magnesium and SoluMedrol. She denied any paresthesias in the left arm or leg. She denied any photophobia. She has history of oral ulcers. She denied any genital ulcers. Labs, imaging, and other diagnostic study: MRI brain with and without contrast 09/12/2019: normal pre and post contrast brain MRI. Independently reviewed. CSF analysis: WBC: 175 Total Cell Count: 100 Lymphocytes: 97% CSF protein: 52 CSF gram stain: no growth day 1. No organisms seen. Review of Systems: Denied CP, SOB, or palpitations. Objective Active Medications: Acetaminophen (Tylenol Tab*) 650 mg PO Q6H PRN PRN Reason: HEADACHE Cyanocobalamin (Vitamin B12 Tab*) 1,000 mcg PO DAILY [facility] Last Admin: 09/13/19 07:56 Dose: 1,000 mcg Escitalopram Oxalate (Lexapro *) 20 mg PO DAILY [facility] Last Admin: 09/13/19 07:56 Dose: 20 mg Levothyroxine Sodium (Synthroid Tab*) 25 mcg PO DAILY@0600 [facility] Last Admin: 09/13/19 05:35 Dose: 25 mcg Magnesium Oxide (Magox 400 Tab*) 400 mg PO DAILY [facility] Last Admin: 09/13/19 07:56 Dose: 400 mg Metoclopramide HCl (Reglan Iv*) 10 mg IV Q8H PRN PRN Reason: NAUSEA/VOMITING Valacyclovir HCl (Valtrex 1 Gm(*)) 1 gm PO Q8H [facility]; Protocol Last Admin: 09/13/19 07:56 Dose: 1 gm Vital Signs 09/12/19 09/12/19 09/12/19 11:45 11:47 11:48 Temperature 98.4 F Pulse Rate 77 64 62 Respiratory 16 Rate Blood Pressure 108/50 108/50 (mmHg) O2 Sat by Pulse 98 99 99 Oximetry 09/12/19 09/12/19 09/12/19 12:00 12:21 12:48 Temperature Pulse Rate 65 67 62 Respiratory Rate Blood Pressure 121/71 106/67 (mmHg) O2 Sat by Pulse 97 100 99 Oximetry 09/12/19 09/12/19 09/12/19 13:00 14:38 14:39 Temperature Pulse Rate 64 62 64 Respiratory Rate Blood Pressure 107/63 (mmHg) O2 Sat by Pulse 99 98 100 Oximetry 09/12/19 09/12/19 09/12/19 14:48 15:00 15:18 Temperature Pulse Rate 64 62 64 Respiratory Rate Blood Pressure 107/70 111/70 (mmHg) O2 Sat by Pulse 99 99 99 Oximetry 09/12/19 09/12/19 09/12/19 15:48 16:00 16:18 Temperature Pulse Rate 73 74 65 Respiratory Rate Blood Pressure 103/77 83/54 (mmHg) O2 Sat by Pulse 100 99 99 Oximetry 09/12/19 09/12/19 09/12/19 17:07 17:35 18:30 Temperature 98.5 F 97.3 F Pulse Rate 68 72 Respiratory 18 16 Rate Blood Pressure 105/61 105/61 105/49 (mmHg) O2 Sat by Pulse 98 92 Oximetry 09/12/19 09/12/19 09/13/19 20:41 23:47 03:40 Temperature 98.3 F 98.3 F 98.6 F Pulse Rate 69 66 68 Respiratory 16 18 18 Rate Blood Pressure 108/63 107/46 99/54 (mmHg) O2 Sat by Pulse 97 98 98 Oximetry 09/13/19 09/13/19 07:15 07:26 Temperature 98.1 F Pulse Rate 58 Respiratory 16 18 Rate Blood Pressure 96/49 (mmHg) O2 Sat by Pulse 98 Oximetry Intake and Output Last 24 Hours 09/11/19 09/12/19 09/13/19 09/14/19 06:59 06:59 06:59 06:59 Intake Total 1050 740 Balance 1050 740 Weight 172 lb 8 oz Intake: IV Fluids 1050 500 Oral 0 240 Other: Estimated Void Large # Voids 1 Oxygen Devices in Use Now: None Neurology Exam: General: Well nourished, well developed, and in no acute distress HEENT: Normocephelic/atraumatic, sclera anicteric, mucous membranes moist Neck: Supple Chest: Clear to auscultation bilaterally Cardiovascular: Regular rate and rhythm without murmurs, rubs, gallops Extremities: No clubbing, cyanosis, or edema Neurological Findings: Awake, alert, and oriented to person, place, and time. Speech: fluent without dysarthria, repetition intact Cranial Nerve: PERRL, EOM intact, VFF, no nystagmus, face symmetric bilaterally , facial sensation intact, hearing intact to finger rub bilaterally, palate elevates symmetrically, tongue midline, SCM and Trapezius s/s. Motor: s/s throughout, proximal and distal extremities x4 tone/bulk normal Sensation: intact to LT/PP bilaterally upper and lower extremities Deep Tendon Reflex: 3+ symmetric in the upper/lower extremities, Babinski - down going. Finger to nose, rapid alternating movements intact without tremor, no dysdiadochokinesia Gait: intact with good arm swing and stride Result Diagrams: 09/12/19 12:20 09/12/19 12:20 Microbiology and Other Data: Microbiology 09/12/19 20:29 CSF Gram Stain (Tube 3) - Final Cerebral Spinal Fluid CSF Culture - Preliminary No Growth Day 1 Assessment/Plan Tg Coleman is a 23-year-old female who has had a two week history of headache , photophobia, and intermittent paresthesias in the left upper and lower extremities. Her examination is notable for hyperreflexia. CSF examination revealed lymphocytic pleocytosis. MRI brain with and without contrast was normal without any evidence of leptomeningeal enhancement or demyelinating lesions. B12 level was low when checked in a previous ER visit. 1. 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 She responded well to steroids and IV magnesium. She was started on valacyclovir 1,000 mg by mouth three times a day. 2. Vitamin B12 deficiency Recommendation: - The patient is requesting to go home. We don't have the results for the HSV PCR. Therefore, continue valacyclovir 1,000 mg by mouth three times daily until the PCR results. If it's negative, please contact the patient and discontinue the valacyclovir. - Pending HSV PCR, Enterovirus PCR, Viral encephalitis panel - Continue vitamin B12 supplements: cyanocobalamin 1,000 mcg by mouth daily - Follow-up with neurology in 6 weeks. We will arrange a follow-up appointment.
--- NOTE | 2019-09-13 18:45 | DS ---
DISCHARGE SUMMARY: DATE OF ADMISSION: 09/12/19 DATE OF DISCHARGE: 09/13/19 ADMITTING PROVIDER: Diego Muller MD. PRIMARY CARE PROVIDER: Dr. Colunga. ATTENDING PHYSICIAN ON DAY OF DISCHARGE: Diego Muller MD CONSULTING NEUROLOGIST: Dr. Robyn Guerrero. CHIEF COMPLAINT: Intractable nausea, vomiting, headaches. PRINCIPAL DIAGNOSES: 1. Likely viral meningitis of unknown etiology. 2. Intractable nausea, vomiting, headaches, now resolved. 3. Vitamin B12 deficiency. HISTORY OF PRESENT ILLNESS AND HOSPITAL COURSE: Tg Coleman is a 23-year-old female with past medical history of anxiety, depression, hypothyroidism. Please see H and P for further details, but briefly, she had cleaned her carpets with a chemical solution from [employer] on 09/03/19 and woke up the next morning falling out of bed with severe numbness and tingling to her left hand and weakness in bilateral lower legs. She developed frequent nausea and severe headaches which were progressive and could not ultimately hold down medications. She had tried 2 tabs of ibuprofen every 4 hours initially. She had a CT head scan later that day, but had no acute process, but symptoms were not improving. She presented to [facility] directly from Dr. Colunga's office where she saw another provider via an EMS transport. Dr. Guerrero was consulted and given the intractable headache, nausea, vomiting, and physical exam findings of some hyperreflexia bilaterally, she was recommended to get an MRI of the brain and LP after that after receiving other headache management. Specifically, she got magnesium 2 g and then Solu-Medrol 125 mg and Reglan, and notably her headaches, nausea, and vomiting had improved she says while she was sitting in the MRI scanner and did not have symptoms after that. The CSF studies were significant for lymphocytic predominant pleocytosis with a white count of 175, 0 rbc's, 97% lymphocytes, 3% monocytes, 0% neutrophils, 62 mg/dL glucose within normal limits, and 52 mg/dL total protein which was elevated consistent with likely aseptic viral meningitis. Full CSF studies are still pending, which include Lyme [employer] IgG, herpes simplex virus PCR. After the concern that it was consistent with a viral meningitis, Enterovirus and [facility] viral encephalitis panel were also ordered. The MRI was within normal limits. In terms of concern for possible MS, the oligoclonal bands and IgG are also still pending. She looks like a new woman the next day, eager for discharge. She had been started after the CSF on valacyclovir 1000 mg p.o. t.i.d. and was recommended to continue that for 7 days or unless told to stop after HSV PCR were to return negative. She notably had normal CBC, CMP, and INR of 1.3. She also had been found to have severe B12 deficiency on testing the day prior when she presented to the ED on 09/11/19. Those later returned to have a B12 level of 131. At that time , she had been told to stay the night at a different house, but her symptoms had not improved, hence her return the next day. She was given 1000 mcg of IM cyanocobalamin in the emergency room and started on 1000 mcg daily. DISCHARGE MEDICATIONS: Include: 1. Vitamin B12 tablets 1000 mcg p.o. daily (new and there should be consideration for ongoing intramuscular weekly injections as an outpatient). 2. Lexapro 20 mg daily. 3. Levothyroxine 25 mcg p.o. daily. 4. Valacyclovir 1 g p.o. q.8 hours for 19 more tabs or until told to stop. FOLLOWUP: Please follow up with Dr. Colunga especially if symptoms worsen. She can also follow up with Dr. Guerrero or other [facility] neurologist if her headaches were to return. Things to follow up would be her CSF studies including her Lyme , HSV, oligoclonal bands, IgG, [facility] viral encephalitis panel, and the Enterovirus PCR. Her CSF has no growth by 1 day and no organisms were seen. CONDITION: Markedly improved. DISPOSITION: Home. DIET: Unrestricted, but was told to maintain good hydration while taking the valacyclovir. TIME SPENT ON DISCHARGE: 45 minutes. [id number]/[facility] #: [id number] [facility] SYSTEMRosalia
[2019-09-15 18:12] LABS: HSV 1 PCR, CSF Negative (Negative); HSV 2 PCR, CSF Negative (Negative)
[2019-09-15 22:09] LABS: Enterovirus Source CSF
[2019-09-17 11:59] LABS: Albumin 5060 mg/dL; CSF Albumin 32.8 mg/dL (<=27.0); CSF IGG 3.7 mg/dL (<=8.1); CSF Immunoglobulin G Synthesis 0.24 mg/24 h (<=12); Immunoglobulin G 1150 mg/dL (767 - 1590)
[2019-09-17 17:06] LABS: Oligoclonal Proteins Interpret 0 bands (<4)
== END 2019-09-13 10:54 | disposition home or self-care (01) ==
LOC: ED 11:38 → MEDTELE 15:23
PROVIDERS: ADMIT Internal Medicine; ATTEND Internal Medicine
DX: R11.2 Nausea with vomiting, unspecified (principal); R51 Headache; E53.8 Deficiency of other specified B group vitamins; F32.9 Major depressive disorder, single episode, unspecified; F41.9 Anxiety disorder, unspecified; Z79.899 Other long term (current) drug therapy; Z91.81 History of falling
CPT/HCPCS: 36415; 70553; 80053; 82375; 82784; 82945; 83735; 83916; 84157; 85025; 85610; 85652; 86140; 86618; 87070; 87205; 87498; 87529; 89051; 96365; 96366; 96372; 96375; 96376; 99285; A9270-GY; A9579; G0378; J1885; J2765; J2930; J3420; J3475

== ENCOUNTER 2019-10-02 11:31 | Inpatient (IN) | payer BC ==
--- NOTE | 2019-10-02 11:56 | ED ---
Headache - HPI Summary HPI Summary: The patient is a 23 y/o F presenting to [facility] with a chief complaint of persistent headache for the last month since being diagnosed with viral meningitis. She reports that following the diagnosis, she has been unable to resolve her headache, which was not worse following the LP that brought her to the diagnosis. She notes that she has been experiencing numbness in the left hand and weakness in the right hand and BLE that has made her have difficulty getting out of bed in the morning because she is unable to ambulate well or grasp objects, but the symptoms usually subside throughout the day. Currently, her only complaint is the headache and neck stiffness rated 8/10 in severity. She denies any fevers or chills. She was seen by Natanael Charles NP, in neurology today who recommends a repeat spinal tap and MRI. She takes Levothyroxine, Escitalopram, and Vitamin B12 daily. PMHx: thyroid disease, sleep apnea, migraine/headaches, anxiety, depression, vitamin B12 deficiency ( recent dx). Nonsmoker, rare EtOH, no substance use. Medications reviewed. Allergies noted. - History Of Current Complaint Chief Complaint: EDGeneral Stated Complaint: VIRAL MENINGITIS PER PT Time Seen by Provider: 10/02/19 11:38 Hx Obtained From: Patient Hx Last Menstrual Period: 08/29/19 Onset/Duration: Started days ago - one month, Still Present Initially Headache Was: Moderate Currently Pain Is: Current Pain Scale(0-10)= - 8 Timing: Constant Character: Sharp Location of Headache: Diffuse Aggravating Factor: Nothing Allevating Factors: Nothing Associated Signs And Symptoms: Neck Stiffness, Other (Noted In Comments) - numbness in the left hand, weakness in the right hand and BLE; Negative: chills - Allergies/Home Medications Allergies/Adverse Reactions: Allergies Allergy/AdvReac Type Severity Reaction Status Date / Time diphenhydramine Allergy htn Verified 10/02/19 11:40 [From Benadryl] PMH/Surg Hx/FS Hx/Imm Hx Endocrine/Hematology History: Reports: Hx Thyroid Disease - hypo, Other Endocrine/Hematological Disorders - Vitamin B12 deficiency Denies: Hx Diabetes Cardiovascular History: Denies: Hx Hypercholesterolemia, Hx Hypertension, Hx Pacemaker/ICD Respiratory History: Reports: Hx Sleep Apnea - POSSIBLE Sensory History: Reports: Hx Contacts or Glasses Denies: Hx Legally Blind, Hx Deafness, Hx Hearing Aid Opthamlomology History: Reports: Hx Contacts or Glasses Denies: Hx Legally Blind Neurological History: Reports: Hx Headaches, Hx Migraine - 1 Q 3 MONTHS Psychiatric History: Reports: Hx Anxiety - ON MEDS, Hx Depression - ON MEDS Denies: Hx Panic Disorder - Surgical History Surgical History: Yes Surgery Procedure, Year, and Place: Tonsillectomy 2012 Hx Anesthesia Reactions: No - Immunization History Date of Tetanus Vaccine: utd Date of Influenza Vaccine: fall 2017 Infectious Disease History: No Infectious Disease History: Denies: Traveled Outside the [place] in Last 30 Days - Family History Known Family History: Positive: Hypertension, Other - sister has migrane. - Social History Alcohol Use: Rare Hx Substance Use: No Substance Use Type: Reports: None Hx Tobacco Use: No Smoking Status (MU): Never Smoked Tobacco Review of Systems Negative: Fever, Chills Positive: Other - neck stiffness Neurological: Other - difficulty ambulating secondary to weakness Positive: Headache, Weakness - right hand, BLE, Numbness - left hand All Other Systems Reviewed And Are Negative: Yes Physical Exam - Summary Physical Exam Summary: Constitutional: Well-developed, Well-nourished, Alert. (-) Distressed Skin: Warm, Dry HENT: Normocephalic; Atraumatic Eyes: Conjunctiva normal Neck: Pain with all movements of the neck, Musculoskeletal ROM normal neck. (-) JVD, (-) Stridor, (-) Tracheal deviation Cardio: Rhythm regular, rate normal, Heart sounds normal; Intact distal pulses. Radial pulses are 2+ and symmetric. (-) Murmur Pulmonary/Chest wall: Effort normal. (-) Respiratory distress, (-) Wheezes, (-) Rales Abd: Soft. (-) Tenderness, (-) Distension, (-) Guarding, (-) Rebound Musculoskeletal: (-) Edema Lymph: (-) Cervical adenopathy Neuro: Alert, Oriented x3, 3+ Reflexes patellar bilaterally, 2+ Reflexes biceps bilaterally Psych: Mood and affect Normal Triage Information Reviewed: Yes Vital Signs On Initial Exam: Initial Vitals Temp Pulse Resp BP Pulse Ox 98 F 73 16 139/66 98 10/02/19 11:34 10/02/19 11:34 10/02/19 11:34 10/02/19 11:34 10/02/19 11:34 Vital Signs Reviewed: Yes Procedures - Sedation Patient Received Moderate/Deep Sedation with Procedure: No - Lumbar Puncture Midline Lumbar Paraspinals Procedural Sedation: none Position: Sitting Aseptic Technique: Local Anesthesia Anesthesia Used: 1.0% Lido - with epi, 2.5mls Spinal Needle Used: 22 Gauge Lumbar Puncture Note: 8ccs of CSF obtained from the L4-L5 region using 22 gauge needle with 1% lido with epi, one attempt Diagnostics - Vital Signs Vital Signs Temp Pulse Resp BP Pulse Ox 10/02/19 11:34 98 F 73 16 139/66 98 - Laboratory Result Diagrams: 10/02/19 12:05 10/02/19 12:05 Lab Statement: Any lab studies that have been ordered have been reviewed, and results considered in the medical decision making process. Re-Evaluation - Re-Evaluation First Eval Re-Evaluation Time: 12:20 Comment: LP performed (see procedure note); patient tolerated well, risks discussed Headache Course/Dx - Course Course Of Treatment: Patient is here with continued headaches that are worse in the morning. Patient did have neurologic symptoms in the morning but those improved throughout the day. Patient's only neurologic symptom of the examination here was hyperreflexia in her lower extremities. Patient was found to be vitamin B12 deficient 1 month ago but her repeat level today was normal. Patient had a repeat LP which showed worsening protein and continued leukocytosis. Neurology was counseled to deny recommended IV antibiotics and admission. - Diagnoses Provider Diagnoses: Viral meningitis, Headache - Physician Notifications Discussed Care Of Patient With: Natanael Charles - [employer]ADER, neurology Time Discussed With Above Provider: 12:00 Instructed by Provider To: Other - I discussed the patient's case with Natanael Charles to confirm his recommended plan of treatment. Dr. Canela from neurology is in the ED speaking with the patient about further plan of treamtent at 1400. At 1420, Natanael Charles states that he would like the patient to admitted for further treatment since LP is still positive at this time; he will speak to the hospitalist concerning admission. Dr. Muller accepts the patient for admission at 1430. Discharge ED - Sign-Out/Discharge Documenting (check all that apply): Patient Departure - Patient accepted for admission by Dr. Muller. - Discharge Plan Condition: Stable Disposition: ADMITTED TO [facility] - Billing Disposition and Condition Condition: STABLE Disposition: Admitted to [facility] - Attestation Statements Document Initiated by Tara: Yes Documenting Scribe: Colette Aguilar Provider For Whom aTra is Documenting (Include Credential): Dr. Kiran Maldonado MD Scribe Attestation: I, Colette Aguilar, scribed for Dr. Kiran Maldonado MD on 10/02/19 at 2026. Scribe Documentation Reviewed: Yes Provider Attestation: The documentation as recorded by the Colette ugarte accurately reflects the service I personally performed and the decisions made by me, Dr. Kiran Maldonado MD Status of Scribe Document: Viewed
[2019-10-02 12:25] LABS: ABS Basophils 0.1 10^3/ul (0-0.2); ABS Eosinophils 0.1 10^3/ul (0-0.6); ABS Monocytes 0.6 10^3/ul (0-0.8); ABS Neutrophils 4.8 10^3/ul (1.5-7.7); Eosinophil % 1.7 %; Hematocrit 40 % (35-47); Hemoglobin 13.9 g/dL (12.0-16.0); Lymphocyte % 26.6 %; Mean Corpuscular HGB Conc 35 g/dL (31-36); Mean Corpuscular Hemoglobin 30 pg (27-31); Mean Corpuscular Volume 88 fL (80-97); Mean Platelet Volume 9.1 fL (7.4-10.4); Nucleated Red Blood Cells % 0.3; Platelet Count 261 10^3/uL (150-450); Red Blood Count 4.61 10^6 /uL (3.70-4.87); Red Cell Distribution Width 13 % (10-15); White Blood Count 7.6 10^3/uL (3.5-10.8)
[2019-10-02 12:45] LABS: ALT 12 U/L (7-52); AST 13 U/L (13-39); Albumin 4.6 g/dL (3.2-5.2); Albumin/Globulin Ratio 1.6 (1-3); Alkaline Phosphatase 57 U/L (34-104); Anion Gap 7 mmol/L (2-11); BUN/Creatinine Ratio 10.8 (8-20); Blood Urea Nitrogen 8 mg/dL (6-24); C Reactive Protein < 1.00 mg/L (<8.01); CO2 Carbon Dioxide 29 mmol/L (22-32); Calcium 9.8 mg/dL (8.6-10.3); Chloride 104 mmol/L (101-111); EGFR African American 116.7 (>60); EGFR Non-African American 96.4 (>60); Globulin 2.9 g/dL (2-4); Glucose 89 mg/dL (70-100); Potassium 3.3 mmol/L (3.5-5.0); Sodium 140 mmol/L (135-145); Total Protein 7.5 g/dL (6.4-8.9)
[2019-10-02 12:51] LABS: Body Fluid Source Cerebral Spinal
[2019-10-02 12:51] LABS: HCG Pregnancy < 0.60 mIU/mL
[2019-10-02 13:10] LABS: CSF Glucose 55 mg/dL (40-70)
[2019-10-02 14:12] LABS: Body Fluid Mono 6 %
[2019-10-02] MEDS ORDERED: Gadoteridol* (CONTRAST) 279.3 MG/ML 10 ML IV ONE (16:11)
--- NOTE | 2019-10-02 17:20 | CONS ---
CONSULTATION REPORT: DATE OF CONSULT: 10/02/19 REQUESTING PHYSICIAN IN CONSULT: Dr. Maldonado. ATTENDING PHYSICIAN WHILE IN THE HOSPITAL: Dr. Wagner Canela (report dictated by Natanael Charles NP). REASON FOR NEUROLOGICAL CONSULTATION: Evaluation of abnormal CSF. HISTORY OF PRESENT ILLNESS: Ms. Coleman is a 23-year-old female patient who is relatively healthy, who I saw today in clinic in followup for a presumed viral meningitis from a hospitalization from 09/12/19. In clinic today on 10/02/19 when I evaluated her, she said that her headaches were getting worse. She was noticing the nausea and vomiting getting worse over the last 7 to 10 days and she noted the pain in her head was starting in the back of her neck and radiating to the back of her head, very similar to what her previous syndrome felt like. She noted that the pain was not quite as severe, but it was getting close to that. She also reported some intermittent chest pain for the last couple days, not feeling well and again vomiting. At that point, I was concerned and sent the patient to the ER. There was concern that perhaps the viral meningitis had not resolved and again I expect that it should have resolved in this time course or she should be feeling better. She presented down to the ER per my recommendation and was found to have elevated WBC again of 158, predominantly lymphocytes and protein of 88. She gives a history that back on 09/02/19 about a month ago she had similar symptoms of headache, neck pain with nausea, vomiting, light and sound sensitivity, all of which she was having now with the exception subjectively the headache was worse back in August. She initially sought urgent care, was felt to be a migraine and then on 09/11/19 after seeing her PCP, was referred back to the ER where an LP was obtained, ultimately felt to have viral meningitis in the setting that prior to the headaches on 09/02/19, she stated that she had had the flu. Initially did quite well in the hospital, was discharged in 24 hours, was returned to baseline and her headache resolved, but again because of the recurrence of her symptoms and the fact that she gives this history of having numbness and tingling intermittently and in the morning falling at times because of the numbness and tingling and the fact that the headaches were getting worse, I referred her to the ER. In addition to this, it was noted at previous hospitalization in August that her B12 was 131. She was sent back to the ER today. Repeat LP showed elevated WBC, elevated total protein again. Because of this, we were asked to evaluate in consult. PAST MEDICAL HISTORY: Significant for: 1. Again, presumably viral meningitis on 09/12/19. 2. Anxiety. 3. Depression. 4. Hypothyroidism. PAST SURGICAL HISTORY: She has had a tonsillectomy. HOME MEDICATIONS: Include: 1. Synthroid 25 mcg daily. 2. Lexapro 20 mg daily. 3. B12 1000 mcg p.o. daily. ALLERGIES TO MEDICATIONS: Include BENADRYL. FAMILY HISTORY: Her mother and father are healthy. She has 2 older sisters, one of them has a history of migraines. SOCIAL HISTORY: She is not a smoker. Rarely drinks alcohol. No drug use. 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 Surrogate decision maker is her mother. REVIEW OF SYSTEMS: There is no documented fever. She denied having any significant weight change. There is no double vision. She denies having any ear discharge. No rhinorrhea, no sore throat. No thyroid enlargement. There was chest pain. There is no orthopnea, no nocturnal dyspnea. There is no abdominal pain. There was nausea and vomiting. No dysuria, no frequency. No seizure, no loss of consciousness. No pruritus and no skin ulcerations. A review of 14 systems completed, all others negative. PHYSICAL EXAM: Vital Signs: Blood pressure 110/72, pulse 71, respirations were 18, O2 sat 96%, temperature 98. General: At this time, Ms. Coleman is a 23 -year- old female patient. She is sitting in the ED stretcher. She does not appear to be in any acute distress. She is awake and she is alert. HEENT: Head: Atraumatic. Eyes: Sclerae anicteric and not pale. Throat: Oral mucosa appears to be dry. No oropharyngeal erythema. Neck was supple. Heart: Sounds S1, S2. Regular rate and rhythm. No murmurs, rubs, or gallops. Lungs: Clear to auscultation bilaterally. No wheezes, rales, or rhonchi. Abdomen: Soft, flat, nontender. Bowel sounds were present. Extremities: Pulses were 2+ throughout. She is moving all 4 extremities with 5/5 strength. Neurologically , she is awake, she is alert. Her speech was clear. Cranial nerves II through XII were intact. EOMs were intact. Pupils were equal and reactive to light. She did have papilledema noted bilaterally. Tongue was midline. Palate elevates symmetrically. No facial drooping noted to the upper or lower face. Sternocleidomastoid muscle and trapezius muscle 5/5 strength. She had no nuchal rigidity, but with movement of her neck with flexion, extension or rotation, she had pain subjectively. Speech was clear and fluent. No dysarthria. Hearing was grossly intact. Voice again was normal. On motor exam , she had 5/5 strength in the upper and lower extremities both distally and proximally. No rigidity noted. No pronator drift. Coordination: Finger-to- nose was intact. No tremors were noted. Reflexes: She was 2+ at the biceps, 2 + at the brachioradialis, 3+ at the patella bilaterally, 2+ at the ankle, equivocal Babinski's. Sensation was intact to light touch throughout. No neglect was noted. Pinprick was intact. She did have some subtle loss of proprioception to the great toes bilaterally. Vibration intact. Gait was normal in nature, normal arm swing. Romberg with minimal sway with eyes open and closed. Skin: Intact. DIAGNOSTIC STUDIES/LAB DATA: Today, WBC 7.6, RBC 4.61, hemoglobin 13.9, hematocrit of 40, platelet count of 261. Sodium 140, potassium 3.3, chloride 104, bicarb 29, BUN 8, creatinine of 0.74, glucose 89, calcium 9.8. Total bili 0.7, AST 13, ALT 12, alk phos 57. CRP less than 1. Beta hCG negative. B12 717. Albumin 4.6. CSF revealed white cell count of 158, predominantly lymphocytes, no red cells noted, glucose 55, and her total protein was 88. I did review the labs from the previous visit. At that visit again noted oligoclonal bands were negative, HSV-1 negative in CSF, herpes CSF negative, also CSF IgG and IgG albumin ratio with an index and synthesis rate normal. Lyme serology was negative and Enterovirus negative, Cryptococcus negative, and the [facility] encephalitis panel was noted to be negative and nonreactive. She had a previous MRI at last visit of the brain, which revealed normal pre and post contrasted MRI of the brain. Old medical records were reviewed. ASSESSMENT AND PLAN: Ms. Coleman is a 23-year-old female patient coming into the hospital today after I saw her in clinic today with worsening complaints of headache, nausea, vomiting, and neck pain. Reevaluation of the spinal tap reveals persistent leukocytosis and elevated protein of unclear etiology. Recommendations at this point are going forward: 1. Aseptic meningitis, question of viral meningitis. At this point, I touched base with ID and asked them to evaluate the patient. They will be seeing the patient tomorrow. Infectious Disease recommended repeating viral panels which I have done and also treating empirically with Rocephin and either Valtrex or acyclovir. Also, from our standpoint, I think it would be important to also obtain an anti-double stranded DNA, JEFF, ANCA panel to look for vasculitis. I have also ordered an SATISH level. I am going to repeat the bands. We have ordered a protein electrophoresis. I repeated a Lyme screen peripherally and in the CSF. In addition to this, we will repeat West Nile, VDRL, herpes simplex. In addition to this, we will also check a Coccidioides antibody as well. In addition to this, we will do flow cytometry on CSF, paraneoplastic, fungal culture and acid-fast on CSF as well and repeat the viral encephalitis panel. Going forward, because of the papilledema, certainly this could be related to underlying infection; however, we would like to rule out other etiologies and we are going to be obtaining an MRV of the head, also obtaining a cervical spine with and without contrast given the hyperreflexia, and also a brain MRI again to see if there is any meningeal enhancement. I do note that she had this done 2 weeks ago. Going forward, I would recommend symptomatic treatment for her headache at this point. We will await further workup with the MRIs. Dr. Canela did evaluate the patient today in the ER with me and he was in agreement with this plan. I discussed the case with the attending hospitalist, Dr. Muller, and he was in agreement as well. Again, ID will evaluate the patient. Again, differential is broad. This could be related to an infectious process or possibly to another inflammatory process which we are undergoing further workup with. 2. For her depression and anxiety, continue meds as prescribed and defer management to the primary care team. 3. Hypothyroidism. Defer management to primary team. TIME SPENT: Time spent on the consult was 60 minutes, greater than half the time was spent [id number] with the patient, other half time was spent going over the plan of care with the patient and implementing the plan of care. Again, I did discuss the plan of care with Dr. Canela and he did evaluate the patient alongside with me today and was in agreement with the plan. NATANAEL CHARLES, CATALOGUE LIBRARIAN [id number]/[facility] #: [id number] AKANKSHA
[2019-10-02] MEDS: ValACYclovir (*) 1 GM TAB PO SCH (18:04)
[2019-10-02] MEDS: DOXYcycline CAP(*) 100 MG PO SCH ×2 (18:15→22:07)
[2019-10-02 18:46] LABS: Erythrocyte Sed Rate 7 mm/Hr (0-19)
--- NOTE | 2019-10-02 19:57 | HP ---
HISTORY AND PHYSICAL: DATE OF ADMISSION: 10/02/19 ADMITTING PROVIDER: Diego Muller MD. PRIMARY CARE PROVIDER: "Leonor" at [facility]. CHIEF COMPLAINT: Headaches, intermittent weakness, numbness, nausea, vomiting, neck pain. HISTORY OF PRESENT ILLNESS: gT Coleman is a 23-year-old female with past medical history of anxiety, depression, hypothyroidism, and recent diagnosis of viral meningitis of unknown etiology when she was admitted between 09/12/19 and 09/13/19 and had a lumbar puncture which demonstrated lymphocyte-predominant pleocytosis with elevated WBCs of 175 and protein to 52 with a normal glucose. All those studies were negative including a viral encephalopathy panel, HSV-1 and 2 PCRs. Oligoclonal bands were 2. Lyme IgG was negative, cryptococcus was negative, enterovirus RNA was negative. Her symptoms at that time had been severe headaches, nausea, vomiting and she had actually improved remarkably after getting magnesium, steroids, ketorolac, and Reglan in the emergency room even before the lumbar puncture. She was feeling much better on discharge, but says that many of her symptoms slowly started to return. She has had nausea that has been intermittent approximately every other day and random. She has been able to keep her meals down. She develops numbness and tingling in her bilateral legs in the mornings only and in her left arm also in the mornings only, and this can last up to approximately 35 minutes. She has fallen about 4 times. When she tries to get up out of bed, she frequently has dizziness and head spinning. Her eyes are constantly hurting her again behind both eyes. She has had headaches 09/05 including waking her up about once a night. She is not taking any other headache medications. The nausea returned about 1 week ago. The back of her neck is painful if she bends down to touch. She has seen her primary care doctor twice who has kept her out of work and then had followup for the first time with Neurology with Woo Charles, who referred her to the emergency room for further evaluation with repeat LP. This again has shown similar initial CSF studies with elevated white blood cells of 158 with 94% lymphocytes, protein elevated at 88, glucose within normal limits at 55. Natanael Charles spoke informally with Dr. Hema Montoya of Infectious Disease who recommended covering the patient empirically again for HSV until repeat cultures are back negative again and also doxycycline in addition to peripheral Lyme disease serology, which has not been obtained yet. There was also on neurological examination report of papilledema bilaterally, and pseudotumor cerebri or other elevated intracranial pressure is on the list of the differential. Additional MRI and multiple CSF studies are pending. Her vitamin B12 level was also found to be low at 131 last admission and it has improved after supplementation to 717 here. Incidentally, in late July, she developed 3 to 4 small painful lumps in her armpit and this resolved after 3 to 4 days before imaging study could be obtained. PAST MEDICAL HISTORY: Anxiety, depression, hypothyroidism, and viral meningitis suspected last month. PAST SURGICAL HISTORY: Tonsillectomy. MEDICATIONS: Include: 1. Synthroid 25 mcg daily. 2. Lexapro 20 mg daily. 3. Vitamin B12 at 1000 mcg p.o. daily. FAMILY HISTORY: Mother and father are healthy. Two older sisters, one with history of migraines. SOCIAL HISTORY: Never smoker. Rare alcohol use. No drug use. 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 Her mother, Nicole Coleman, at [phone] is her medical surrogate decision maker. She desires to be a full code. REVIEW OF SYSTEMS: A complete 14-point review of systems is negative, except as per HPI. She denies any fevers, cough, shortness of breath, abdominal pain, nausea, vomiting, joint pain, or rashes. The headaches are mostly in the back and associated with photophobia and phonophobia, sometimes go down into her neck , never lower than into her temples. PHYSICAL EXAMINATION GENERAL APPEARANCE: In no acute distress. Lights were off. VITAL SIGNS: Temperature 98, pulse rate 73, respiratory rate 16, O2 sat 97% on room air, blood pressure 119/69. HEENT: Normocephalic, atraumatic. Pupils are equal, round, and reactive to light. Extraocular motions intact with some slight left gaze nystagmus at the far edge of range of motion on the left. NECK: Has some slight tenderness with bending, Brudzinski's sign. LUNGS: Clear to auscultation. No wheezing, rales, or rhonchi. CARDIOVASCULAR: Regular rate and rhythm. No murmurs, rubs, or gallops. ABDOMEN: Soft, nontender, nondistended. EXTREMITIES: Warm and well perfused. No peripheral edema. NEUROLOGIC: Cranial nerves II through XII intact except for some slight left gaze nystagmus at the far edge of range of motion on the left. Barrel Raiser strength intact. Sensation intact. Bilateral lower extremities strength intact. DIAGNOSTIC STUDIES/LAB DATA: Labs: White count 7.6, hemoglobin 13.9, hematocrit 40, platelets 261. Sodium 140, potassium 3.3, chloride 104, carbon dioxide 29, BUN 8, creatinine 0.74, glucose 89, magnesium 2.2, calcium 9.8. Total bilirubin 0.7, AST 13, ALT 12, alk phos 57, CRP less than 1. Total protein 7.5, albumin 4.7. B12 of 717. Beta hCG less than 0.6. CSF studies: Clear appearance, white count 159, RBCs 0, 94% lymphocytes, 6% monocytes, glucose 55, CSF 88. Imaging: MRI pending. MRI cervical spine pending. MRV head with and without contrast pending. ASSESSMENT AND PLAN: Tg Coleman is a 23-year-old female with recent suspected viral meningitis returning with symptoms of recurrent headaches, nausea, vomiting, left hand only numbness, and bilateral leg numbness and weakness with a few falls and some neck stiffness. She has had repeat CSF studies and multiple labs have been ordered by the Neurology Service already including JEFF, anti-double stranded DNA, ANCA, coccidioides antibody, angiotensin, cryptococcus, cell count culture, Gram stain, IgG, VDRL, West Nile IgG and PCR, herpes simplex virus PCR, Lyme C and S, and peripheral Lyme reflex serologies, oligoclonal bands. ESR is pending. SPEP is pending. Also, viral encephalopathy panel has been resent and those were all negative before. Per ID recommendations we will start valacyclovir 1 g p.o. q.8 hours empirically for now until repeat HSV studies are back. Doxycycline 100 mg p.o. b.i.d. for now until Lyme and peripheral Lyme studies are back. With the report of papilledema , some evidence of perhaps some abducens palsy on exam, and suspected elevated intracranial pressures, suspicion of possible pseudotumor cerebri or maybe elevated CSF pressures in the setting of recent viral meningitis. She seemed to be responsive to steroids possibly in the past. Other miscellaneous labs include acid fast bacilli to rule out TB, fungal cultures, paraneoplastic panel , and flow cytometry. She is a full code. She can eat a regular diet after her imaging studies. She is being admitted to observation status. [id number]/[facility] #: [id number] MTDD
[2019-10-02] MEDS: Acetaminophen TAB* 325 MG PO PRN (22:48)
[2019-10-03] MEDS: ValACYclovir (*) 1 GM TAB PO SCH ×3 (00:24→16:27)
[2019-10-03] MEDS: Levothyroxine TAB* 25 MCG TAB PO SCH (04:53)
[2019-10-03] MEDS: Escitalopram * 20 MG TABLET PO SCH (08:22)
[2019-10-03] MEDS: Cyanocobalamin TAB* 500 MCG PO SCH (08:22)
[2019-10-03] MEDS: DOXYcycline CAP(*) 100 MG PO SCH (08:22)
[2019-10-03] MEDS: Acetaminophen TAB* 325 MG PO PRN ×2 (12:12→19:13)
[2019-10-03] MEDS ORDERED: Ondansetron INJ* 2 MG/ML VIAL IV PRN (13:07)
--- NOTE | 2019-10-03 15:12 | PN ---
Subjective Date of Service: 10/03/19 Interval History: No acute events overnight. Did not sleep well. HAs continue. Had episode of nausea and vomiting this AM. Some paraesthesias in L>R hand, none in legs today. Switched to CFTX from doxy. no abdominal pain, fevers, chills, chest pain, SOB, cough, Has a dog, no known tick bites. Objective Active Medications: Acetaminophen (Tylenol Tab*) 650 mg PO Q4H PRN PRN Reason: FEVER/HEADACHE Last Admin: 10/03/19 12:12 Dose: 650 mg Cyanocobalamin (Vitamin B12 Tab*) 1,000 mcg PO DAILY [facility] Last Admin: 10/03/19 08:22 Dose: 1,000 mcg Escitalopram Oxalate (Lexapro *) 20 mg PO DAILY [facility] Last Admin: 10/03/19 08:22 Dose: 20 mg Ceftriaxone Sodium 2 gm/ (Sodium Chloride) 100 mls @ 200 mls/hr IVPB Q24H [facility] Levothyroxine Sodium (Synthroid Tab*) 25 mcg PO DAILY@0600 [facility] Last Admin: 10/03/19 04:53 Dose: 25 mcg Ondansetron HCl (Zofran Inj*) 4 mg IV Q6H PRN PRN Reason: NAUSEA Last Admin: 10/03/19 13:28 Dose: 4 mg Valacyclovir HCl (Valtrex 1 Gm(*)) 1 gm PO Q8H [facility]; Protocol Last Admin: 10/03/19 08:22 Dose: 1 gm Vital Signs - 8 hr 10/03/19 10/03/19 07:15 11:00 Temperature 98.0 F 98.0 F Pulse Rate 64 62 Respiratory 18 16 Rate Blood Pressure 104/72 104/67 (mmHg) O2 Sat by Pulse 98 99 Oximetry Oxygen Devices in Use Now: None Appearance: NAD. Eyes: No Scleral Icterus, PERRLA Respiratory: Symmetrical Chest Expansion and Respiratory Effort Cardiovascular: NL Sounds; No Murmurs; No JVD Abdominal: NL Sounds; No Tenderness; No Distention Extremities: No Edema Skin: No Rash or Ulcers Neurological: Alert and Oriented x 3, - - hyperreflexia R>L patellar and b/l brachioradialis. CN intact. Nutrition: Taking PO's Result Diagrams: 10/02/19 12:05 10/02/19 12:05 Additional Lab and Data: Laboratory Results - last 24 hr 10/02/19 10/02/19 12:40 14:24 Fluid Cell Count Rvw By Lyme Total Antibody Negative Microbiology and Other Data: Laboratory Results - last 24 hr 10/02/19 10/02/19 12:40 14:24 Fluid Cell Count Rvw By Lyme Total Antibody Negative Assess/Plan/Problems-Billing Assessment: 23 yo female PMH depression, obesity, hypothyroidism with recent aseptic menigitis and b12 deficiency diagnosis 3 weeks ago, returns with continued symptoms of PICHARDO, intermittent nausea/vomiting, weakness/parathesias in left hand and b/l legs most frequently in AM. Papilledema and hyperreflexive again with lymphocytic pleocytosis with elevated protein. Intial CSF w/u was otherwise negative. Had been shampooing rugs and cleaning vacant house day before initial symptoms - rule out LCMV (Lymphocytic Choriomenigitis Virus) among others (fungal, etc). Sypmptoms improved after steroids 3 weeks prior. - Patient Problems (1) Aseptic meningitis Current Visit: Yes Status: Acute Code(s): G03.0 - NONPYOGENIC MENINGITIS SNOMED Code(s): 731059536 Comment: f/u CSF studies. appreciate Neurology and ID recs empirically getting CFTX and valacyclover. Low suspicioun for HSV given negative PCRs last admission (she had been having symptoms for 2 weeks prior to that) (2) Papilledema due to raised intracranial pressure Current Visit: Yes Status: Acute Code(s): H47.11 - PAPILLEDEMA ASSOCIATED WITH INCREASED INTRACRANIAL PRESSURE SNOMED Code(s): 883441864 (3) Headache Current Visit: Yes Status: Acute Code(s): R51 - HEADACHE SNOMED Code(s): 28562570 Comment: e/o increased CSF pressure given papilledema. Neurology is considering repeat LP to get opening pressure and reduce fluid. (4) Nausea & vomiting Current Visit: Yes Status: Acute Code(s): R11.2 - NAUSEA WITH VOMITING, UNSPECIFIED SNOMED Code(s): 52733956 Comment: sylwia chamberlain. (5) B12 deficiency Current Visit: No Status: Acute Code(s): E53.8 - DEFICIENCY OF OTHER SPECIFIED B GROUP VITAMINS SNOMED Code(s): 221748659 Comment: markedly improved in the last few weeks. (6) Hypothyroidism Current Visit: Yes Status: Acute Code(s): E03.9 - HYPOTHYROIDISM, UNSPECIFIED SNOMED Code(s): 03174175 Comment: continue synthroid. Status and Disposition: medicine inpatient.
--- NOTE | 2019-10-03 15:20 | CONS ---
CONSULTATION REPORT: DATE OF CONSULT: 10/03/19 REQUESTING PROVIDER: Natanael Charles NP CONSULTING SERVICE: Infectious Disease. REASON FOR CONSULT: Meningitis. IMPRESSION: 1. Persistent and subacute meningitis. Has had about a month of headache, some nuchal rigidity, photophobia. On 09/12/19, had 175 white cells in the spinal fluid and now with persistent symptoms and 158 cells. Her encephalitis panel and cultures were all negative the last admission. The differential diagnosis includes chronic or subacute meningitis due to viral infection like Enterovirus or HSV recurrence, though Mollaret's meningitis seems less likely without discrete episodes of meningitis and instead just persistent symptoms. She has also not had fever or increase in inflammatory markers. She has had possible rodent or fungal exposure cleaning an old home. Leptospirosis and lymphocytic choriomeningitis virus is a consideration, though rare and normal LFTs, no evidence of hepatitis, so lepto seems less likely. Her illness was preceded by a flu-like illness in July, so Lyme meningitis is also a consideration. The other tick-borne seem less likely. She did have negative [place] last time she was here as well as negative West Nile and eastern equine encephalitis studies. Noninfectious, autoimmune, or autoinflammatory are a consideration and are being considered as well. The differential does also include medication related CSF inflammation. 2. Papilledema as identified by Dr. Lopes and some weakness in the hands and legs in the morning with paresthesias likely related to process in #1. 3. Obesity. 4. Hypothyroidism. RECOMMENDATIONS: We will change doxycycline to ceftriaxone to cover GEOSPATIAL IMAGERY INTELLIGENCE ANALYST Lyme while awaiting the Lyme serology. We will continue the Valtrex as well. She is going to have repeat of her encephalitis panel. This time, we will add a Lyme serum antibody and antibodies for leptospirosis and LCV. HISTORY OF PRESENT ILLNESS: This is a 23-year-old woman who has been healthy other than hypothyroidism, who in early August developed some headache, malaise and the headache progressed. She had some slight vision change, some neck stiffness, photophobia. Her symptoms progressed for a couple weeks. She came to the hospital on 09/11/19. She had a lumbar puncture then that showed 175 white cells, negative herpes virus PCR, a couple of oligoclonal spinal fluid bands, protein of 52, and then a glucose of 62. She had some antiemetics , hydration, pain medicine. Her studies were negative. She was discharged home. Her headache never resolved and then worsened again after a few days. It was continuing to get bad. She saw Natanael Charles NP, as an outpatient who recommended she come to the ER, which was done yesterday. Her lumbar puncture showed 158 white cells in the spinal fluid, protein of 88, glucose of 55. Her Gram stain and spinal fluid cultures negative. She has had no fever here. Her CRP is less than 1. Her HCG is less than 0.6. TSH is 1. LFTs are normal. She has some sense of vision loss and some pain with ocular motion. She has no joint pain, no rash. She has numbness, tingling in the morning, weakness in her hands and legs. Seems to improve during the course of the day. Her other non-viral studies from August include a negative Lyme antibody in the spinal fluid and negative cryptococcal antigen in the spinal fluid as well. Today, she feels a little bit better with some hydration and pain medicine and after the lumbar puncture had a little bit relief too. She had MRI of the brain and cervical spine. The spine was unremarkable. Brain showed some leptomeningeal enhancement. PAST MEDICAL HISTORY: 1. Hypothyroidism. 2. Obesity. 3. Depression. 4. Anxiety. PAST SURGICAL HISTORY: Status post tonsillectomy. ALLERGIES: DIPHENHYDRAMINE. MEDICATIONS: 1. Tylenol. 2. Cyanocobalamin. 3. Lexapro. 4. Doxycycline 100 mg twice a day by mouth. 5. Valtrex 1 g by mouth every 8 hours. 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 No known sick contacts. She has a pet dog. No one else at home. No new partners. She has been renovating an old house and that process started before she became ill by a few days. FAMILY HISTORY: Parents are both healthy. REVIEW OF SYSTEMS: All negative except as noted above to a 14-point review of systems. PHYSICAL EXAM: Vital Signs: Temperature 36.7, heart rate 62, respiratory rate 16, blood pressure 104/67, oxygen saturation 99% on room air. In general, she is awake, not in distress. Neurologic: She is oriented x3. Follows all commands. Cranial nerves II through XII are intact. Sensation is intact to light touch in the upper and lower extremities bilaterally. There is no lower extremity clonus bilaterally. Neck is supple without mass. There is no rigidity. Heart is regular rate and rhythm without murmurs, rubs, or gallops. Lungs are clear to auscultation bilaterally. HEENT: There is no conjunctival hemorrhage. Oropharynx without lesions. Abdomen: Soft, nontender, nondistended. There are bowel sounds present. Skin: There is no rash or splinter hemorrhage. Musculoskeletal: There is no spine tenderness to palpation or joint synovitis. LABORATORY DATA: White blood cell count 7, hemoglobin 13, platelets 261. Creatinine is 0.7. ALT is 12. CRP less than 1. Please see impression and recommendations as outlined above, which I have discussed with Dr. Lopes. Thanks for asking me to see Ms. Haynesrebecca in consultation. [id number]/[facility] #: [id number] AKANKSHA
[2019-10-03] MEDS ORDERED: cefTRIAXone(*) 2 GM in NS 0.9% 100 ML* 100 ML IVPB SCH (16:00)
--- NOTE | 2019-10-03 16:02 | CONS ---
CC: Hema Montoya MD * NEUROLOGY FOLLOWUP CONSULTATION: DATE OF CONSULT: LOCATION: She is an inpatient in room 422. HOSPITALIST: Diego Muller MD CHIEF COMPLAINT: Headaches, abnormal spinal fluid. INTERVAL HISTORY: Since yesterday, Tg feels about the same. She still has a headache and a pain in the cervical spine. I went over the history with her in detail. With specific questioning, she notes some blurry vision. She has not experienced any double vision. For about a month since the onset of symptoms, she has had episodic numbness in her hands. She does not get numbness in her face. She first became ill in August. She moved into her house that had not been lived in a year and cleaned it extensively. She started to feel sick about a couple of weeks after that. She has had a headache and neck stiffness ever since. There was never a skin rash. There have been no problems with diarrhea or abdominal pain. She does have nausea and some vomiting when the headache gets bad. She does note pain behind her eyes. There has been no recent travel. She has a dog at home. She does not have any other pets. MEDICATIONS: Medications are reviewed and she is on: 1. Levothyroxine 25 mcg p.o. daily. 2. Zofran 4 mg IV q.6 hours as needed for nausea. 3. Valtrex 1 g p.o. q.8 hours. 4. Lexapro 20 mg p.o. daily. 5. Vitamin B12 1000 mcg p.o. daily. 6. Ceftriaxone 2 g IV q.24 hours. 7. She was on doxycycline earlier today and that was just stopped midday today. ALLERGIES: She is listed as having an allergy to DIPHENHYDRAMINE. SOCIAL HISTORY: She works at [employer]. She does not smoke. REVIEW OF SYSTEMS: Additional review of systems is again negative for rashes. She has not had any falls. PHYSICAL EXAM: She is well nourished and well hydrated. Temperature most recently 98.0 by temporal scan, she had been afebrile since admission yesterday. Blood pressure is low, most recently 104/67, as well as 79/34 earlier today. Heart rates running in the 50s to 60s. Respiratory rate is 16 and oxygen saturation is 99% on room air. Heart tones are normal. Lungs are clear. She is able to flex the neck to 2 fingerbreadths from her chin to her chest, but with discomfort. Oral mucosa is moist and I do not see any oral lesions. Neurological Exam: Pupils react equally from 4 mm down to 2.5 mm to light. There is no afferent pupillary defect. Visual acuity is 20/20 bilaterally on a near card uncorrected. Funduscopic exam reveals marked disk elevation with hemorrhages and also some cotton wool spots. Eye movements are normal with some retroorbital discomfort with extremes of eye movement. There is no ptosis. Facial musculature is symmetric. Palate and tongue appeared normal and speech is clear. Motor exam reveals normal strength proximally and distally in the limbs. There is no sustention tremor. [id number] maneuver is normal. She is alert and oriented and a perfectly good historian. Memory is excellent and language is fluent. DIAGNOSTIC STUDIES/LAB DATA: Extensive laboratory data is reviewed. CBC from yesterday is normal, sedimentation rate is 7. Chemistry profile from yesterday is notable for a potassium of 3.3, otherwise is a normal chemistry profile. C- reactive protein is less than 1. Vitamin B12 level yesterday is 717 compared to last month when she came in to the hospital when it was 131. Spinal fluid results from yesterday is notable for a 158 white blood cells per microliter. This compares to 175 back on 09/12/19. Differential is 94% lymphocytes, 6% monocytes. Protein yesterday was 88, this compares to 52 on 09/12/19. Other values from lumbar puncture from is notable for a normal CSF IgG, negative oligoclonal bandings, negative PCR for HSV1 and HSV2. Other serological studies from last visit notable for a negative enterovirus RNA, evaluation of spinal fluid. Cryptococcal antigen titer from 09/12/19 was negative. Spinal fluid Lyme IgG was negative. Acid fast bacilli smear from 10/02/19 interpreted as negative, spinal fluid culture from yesterday is so far no growth. Fungal culture is pending. [facility] viral encephalitis panel from spinal fluid from 09/12/19 was negative for all viruses tested. This included West Nile, adenovirus, HSV1 and 2, cytomegalovirus, varicella zoster virus, Parish-Awad virus, eastern equine encephalitis virus, HHV6, Bo[place] encephalitis, enterovirus RNA, [place] virus. IMPRESSION AND PLAN: Impression is that of aseptic meningitis. She has number of laboratory studies pending. Her papilledema is quite concerning to me. She has normal visual acuity currently, but her fundus is very abnormal. I put in a call to Neuroophthalmology at the [facility] to discuss her case. It seems unlikely that she has optic neuritis or papillitis with her preserved visual acuity, but I would like a subspecialty discussion on this. Unfortunately, I do not have an opening pressure from her lumbar puncture yesterday and I may need to repeat the lumbar puncture both to determine opening pressure and elevate to remove additional fluid. I have put in additional order for CSF VDRL. I have discussed my concerns with Tg and her family who are present. Her mother was also involved in a conversation over the phone. I also briefly discussed her case with Dr. Montoya. I will continue to follow her along with you. [id number]/[facility] #: [id number] MTDD
[2019-10-04] MEDS: ValACYclovir (*) 1 GM TAB PO SCH ×3 (00:43→16:23)
[2019-10-04] MEDS: Levothyroxine TAB* 25 MCG TAB PO SCH (06:30)
[2019-10-04] MEDS: Escitalopram * 20 MG TABLET PO SCH (08:03)
[2019-10-04] MEDS: Acetaminophen TAB* 325 MG PO PRN ×3 (08:03→19:43)
[2019-10-04] MEDS: Cyanocobalamin TAB* 500 MCG PO SCH (08:03)
[2019-10-04 08:22] LABS: ABS Basophils 0.1 10^3/ul (0-0.2); ABS Eosinophils 0.2 10^3/ul (0-0.6); ABS Lymphocytes 2.1 10^3/ul (1.0-4.8); ABS Monocytes 0.6 10^3/ul (0-0.8); ABS Neutrophils 3.3 10^3/ul (1.5-7.7); Eosinophil % 2.7 %; Hematocrit 39 % (35-47); Hemoglobin 13.6 g/dL (12.0-16.0); Lymphocyte % 33.6 %; Mean Corpuscular HGB Conc 35 g/dL (31-36); Mean Corpuscular Hemoglobin 31 pg (27-31); Mean Corpuscular Volume 86 fL (80-97); Mean Platelet Volume 9.1 fL (7.4-10.4); Platelet Count 241 10^3/uL (150-450); Red Blood Count 4.46 10^6 /uL (3.70-4.87); Red Cell Distribution Width 13 % (10-15); White Blood Count 6.2 10^3/uL (3.5-10.8)
[2019-10-04 08:36] LABS: Calcium 9.7 mg/dL (8.6-10.3); EGFR African American 106.6 (>60); EGFR Non-African American 88.1 (>60); Potassium 3.9 mmol/L (3.5-5.0)
[2019-10-04 14:27] LABS: CSF VDRL Negative (Negative)
[2019-10-04 14:59] LABS: CSF Albumin 56.9 mg/dL (<=27.0); CSF IGG 7.3 mg/dL (<=8.1); CSF Immunoglobulin G Synthesis 4.87 mg/24 h (<=12)
--- NOTE | 2019-10-04 17:19 | CONS ---
NEUROLOGY FOLLOWUP CONSULTATION: DATE OF FOLLOWUP: 10/04/19 LOCATION: She is an inpatient in room 422. HOSPITALIST: Dr. Diego Muller. CHIEF COMPLAINT: Headache. INTERVAL HISTORY: Since yesterday, Tg feels no better. She still has a bad headache and stiff neck. She feels her vision is a little blurrier this morning than it was yesterday. She has no new symptoms to report. MEDICATIONS: Reviewed and she remains on: 1. Lexapro 20 mg p.o. daily. 2. Levothyroxine 25 mcg p.o. daily. 3. Valacyclovir 1 g p.o. q.8 hours. Ceftriaxone has been discontinued. PHYSICAL EXAM: She remains afebrile with most recent temperature 97.6, blood pressure 103/53, heart rate in the 60s. Respiratory rate is 16 and oxygen saturation is 99% on room air. She is able to flex her neck to about 2 fingerbreadths from her sternum, but with significant discomfort. There are no rashes. On neurological exam, pupils react equally from 5 mm down to 2 mm. There is a suggestion of a possible right afferent pupillary defect today. Funduscopic exam reveals swollen raised disks bilaterally with what appears to be cotton wool exudates. I do not clearly see any hemorrhages today. Facial musculature is symmetric. Speech is clear. She has normal strength in the limbs. There is no tremor, myoclonus, or asterixis. Her sensorium remains perfectly clear. She is an excellent detailed historian and language is fluent. LABORATORY DATA: From today notable for continued normal CBC. Her chemistry profile is normal today as well. New spinal fluid results which came back today is a negative spinal fluid VDRL. Serum Lyme test came back negative yesterday. Cytology report from spinal fluid from 10/02/19 interpreted as showing reactive lymphocytosis is favored; however, a low-grade lymphoma cannot be excluded as there is insufficient sample remaining for flow cytometry. If lymphoma is a clinical consideration, repeat sampling for flow cytometry would be recommended. Microbiological results notable for no growth on spinal fluid after second day of culture, fungal culture is still pending. Other laboratory studies pending include cryptococcal antigen, repeat PCR for HSV, repeat spinal fluid Lyme studies. IMPRESSION AND PLAN: Impression remains aseptic meningitis, but I am very concerned about her papilledema. She needs repeat lumbar puncture to get an opening pressure and to verify that it is indeed elevated. Also, I would recommend additional fluid be sent for flow cytometry. I am going to reach out to our colleagues at the [facility] to see if they would accept her in transfer. We do not have Ophthalmology here and her vision in particular is most concerning to me. Also, we do not have a clear diagnosis and she has been sick now for 5 to 6 weeks. I will discuss my impression with Dr. Muller. [id number]/[facility] #: [id number] AKANKSHA
--- NOTE | 2019-10-04 18:00 | PN ---
Subjective Date of Service: 10/04/19 Interval History: continued PICHARDO blurry but not double vision no hand numbness or leg numbness today. right neck pain which extends centrally at about c7 drinking water but no appetite for food. Neurologist Dr. Mcelroy spoke to Dr. Yudi Monae who accepted request for transfer to [facility] but no bed available tonight. Objective Active Medications: Acetaminophen (Tylenol Tab*) 650 mg PO Q4H PRN PRN Reason: FEVER/HEADACHE Last Admin: 10/04/19 12:01 Dose: 650 mg Cyanocobalamin (Vitamin B12 Tab*) 1,000 mcg PO DAILY [facility] Last Admin: 10/04/19 08:03 Dose: 1,000 mcg Escitalopram Oxalate (Lexapro *) 20 mg PO DAILY [facility] Last Admin: 10/04/19 08:03 Dose: 20 mg Levothyroxine Sodium (Synthroid Tab*) 25 mcg PO DAILY@0600 [facility] Last Admin: 10/04/19 06:30 Dose: 25 mcg Ondansetron HCl (Zofran Inj*) 4 mg IV Q6H PRN PRN Reason: NAUSEA Last Admin: 10/03/19 13:28 Dose: 4 mg Valacyclovir HCl (Valtrex 1 Gm(*)) 1 gm PO Q8H [facility]; Protocol Last Admin: 10/04/19 16:23 Dose: 1 gm Vital Signs - 8 hr 10/04/19 10/04/19 11:09 15:15 Temperature 97.2 F 97.5 F Pulse Rate 49 52 Respiratory 16 18 Rate Blood Pressure 100/62 102/61 (mmHg) O2 Sat by Pulse 97 98 Oximetry Oxygen Devices in Use Now: None Appearance: NAD Eyes: No Scleral Icterus, PERRLA Respiratory: Symmetrical Chest Expansion and Respiratory Effort, Clear to Auscultation Cardiovascular: NL Sounds; No Murmurs; No JVD, RRR Abdominal: NL Sounds; No Tenderness; No Distention, No Hepatosplenomegaly Extremities: No Edema Skin: No Rash or Ulcers Neurological: Alert and Oriented x 3, NL Sensation Nutrition: Taking PO's Result Diagrams: 10/04/19 08:12 10/04/19 08:12 Additional Lab and Data: Laboratory Results - last 24 hr 10/02/19 10/02/19 10/03/19 12:40 12:40 12:06 WBC RBC Hgb Hct MCV MCH MCHC RDW Plt Count MPV Neut % (Auto) Lymph % (Auto) [place] % (Auto) Eos % (Auto) Baso % (Auto) Absolute Neuts (auto) Absolute Lymphs (auto) Absolute Monos (auto) Absolute Eos (auto) Absolute Basos (auto) Absolute Nucleated RBC Nucleated RBC % Sodium Potassium Chloride Carbon Dioxide Anion Gap BUN Creatinine Est GFR ( Amer) Est GFR (Non-Af Amer) BUN/Creatinine Ratio Glucose Calcium Magnesium Albumin 4740 CSF Albumin 56.9 H CSF IgG 7.3 Serum IgG/Albumin 0.24 CSF IgG/Albumin 0.13 CSF IgG Index 0.54 CSF IgG Synthesis Rate 4.87 Ser Oligoclonal Bands 0 CSF Oligoclonal Bands 0 Oligoclonal Prot Interp 0 CSF VDRL Negative CSF HSV I (PCR) Negative CSF Herpes II DNA (PCR) Negative IgG 1140 Anti-Nuclear Antibody 0.7 Proteinase 3 (PR3) < 0.2 Myeloperoxidase Ab < 0.2 10/04/19 10/04/19 08:12 08:12 WBC 6.2 RBC 4.46 Hgb 13.6 Hct 39 MCV 86 MCH 31 MCHC 35 RDW 13 Plt Count 241 MPV 9.1 Neut % (Auto) 53.4 Lymph % (Auto) 33.6 [place] % (Auto) 9.3 Eos % (Auto) 2.7 Baso % (Auto) 1.0 Absolute Neuts (auto) 3.3 Absolute Lymphs (auto) 2.1 Absolute Monos (auto) 0.6 Absolute Eos (auto) 0.2 Absolute Basos (auto) 0.1 Absolute Nucleated RBC 0.0 Nucleated RBC % 0.0 Sodium 141 Potassium 3.9 Chloride 105 Carbon Dioxide 30 Anion Gap 6 BUN 12 Creatinine 0.80 Est GFR ( Amer) 106.6 Est GFR (Non-Af Amer) 88.1 BUN/Creatinine Ratio 15.0 Glucose 85 Calcium 9.7 Magnesium 2.0 Albumin CSF Albumin CSF IgG Serum IgG/Albumin CSF IgG/Albumin CSF IgG Index CSF IgG Synthesis Rate Ser Oligoclonal Bands CSF Oligoclonal Bands Oligoclonal Prot Interp CSF VDRL CSF HSV I (PCR) CSF Herpes II DNA (PCR) IgG Anti-Nuclear Antibody Proteinase 3 (PR3) Myeloperoxidase Ab Microbiology and Other Data: Microbiology 10/02/19 12:50 Cerebral Spinal Fluid CSF Gram Stain (Tube 3) - Final 10/02/19 12:50 Cerebral Spinal Fluid CSF Culture - Preliminary No Growth Day 2 10/02/19 12:50 Cerebral Spinal Fluid Acid Fast Bacilli Smear - Final Assess/Plan/Problems-Billing Assessment: 23 yo female PMH depression, obesity, hypothyroidism with recent aseptic menigitis and b12 deficiency diagnosis 3 weeks ago(symptoms started about 5 weeks ago), returns with continued symptoms of PICHARDO, intermittent nausea/vomiting , weakness/parathesias in left hand and b/l legs most frequently in AM. Papilledema and hyperreflexive again with lymphocytic pleocytosis with elevated protein. Intial CSF w/u was otherwise negative. Had been shampooing rugs and cleaning vacant house day before initial symptoms - rule out LCMV (Lymphocytic Choriomenigitis Virus) among others (fungal, etc). Sypmptoms improved after steroids 3 weeks ago. Awaiting transfer to [facility] for access to Neuro- opthalmology support ( no bed available today). - Patient Problems (1) Aseptic meningitis Current Visit: Yes Status: Acute Code(s): G03.0 - NONPYOGENIC MENINGITIS SNOMED Code(s): 664337858 Comment: f/u CSF studies (HSV, VDRL, AFB negative to date). Serum Lyme, JEFF, MPO, PR3 wnl. appreciate Neurology and ID recs Stopping CFTX. transfering to [place] when available. Will likely need another LP as there was not enough fluid for cytology (BUFFING MACHINE TENDER lymphoma in ddx) (2) Papilledema due to raised intracranial pressure Current Visit: Yes Status: Acute Code(s): H47.11 - PAPILLEDEMA ASSOCIATED WITH INCREASED INTRACRANIAL PRESSURE SNOMED Code(s): 565149413 Comment: consideration for 2nd LP but Neurology recommending transfer to [place] prior. (3) Headache Current Visit: Yes Status: Acute Code(s): R51 - HEADACHE SNOMED Code(s): 77668457 Comment: e/o increased CSF pressure given papilledema. Neurology is considering repeat LP to get opening pressure and reduce fluid. (4) Nausea & vomiting Current Visit: Yes Status: Acute Code(s): R11.2 - NAUSEA WITH VOMITING, UNSPECIFIED SNOMED Code(s): 05735660 Comment: sylwia hoffmann. (5) B12 deficiency Current Visit: No Status: Acute Code(s): E53.8 - DEFICIENCY OF OTHER SPECIFIED B GROUP VITAMINS SNOMED Code(s): 864390436 Comment: markedly improved in the last few weeks. (6) Hypothyroidism Current Visit: Yes Status: Acute Code(s): E03.9 - HYPOTHYROIDISM, UNSPECIFIED SNOMED Code(s): 14934592 Comment: continue synthroid. Status and Disposition: medicine inpatient.
[2019-10-04 19:46] LABS: HSV 1 PCR, CSF Negative (Negative); HSV 2 PCR, CSF Negative (Negative)
--- NOTE | 2019-10-04 20:55 | PN ---
Progress Note - Progress Note Date of Service: 10/04/19 SOAP: Subjective: CC: headache HPI: 23 year old with a few weeks of headache, nausea, vision change, preceded by a flu like illness that was self limited. Ongoing headache, right sided neck pain, headache worse laying flat or sitting up. Ongoing vision changes. Objective: Vital Signs Temp 36.6 C 10/04/19 19:26 Pulse 55 10/04/19 19:26 Resp 16 10/04/19 20:00 BP 118/67 10/04/19 19:26 Pulse Ox 98 10/04/19 19:26 Intake & Output 10/04/19 10/04/19 10/05/19 06:59 18:59 06:59 Intake Total 0 720 Balance 0 720 Intake: Oral 0 720 Other: # Bowel Movements 0 # Voids 0 Gen:awake, appears comfortable Neuro: alert, oriented x3, moves all extremeties Neck: Right trapezius tender, no nuchal rigidity Heart:Regular, no murmur Lungs:CTA BL Abd:+BS NTND soft Skin: no rash MSK: no spine tenderness, no joint synovitis Laboratory Results - last 24 hr 10/02/19 10/02/19 10/03/19 12:40 12:40 12:06 WBC RBC Hgb Hct MCV MCH MCHC RDW Plt Count MPV Neut % (Auto) Lymph % (Auto) [place] % (Auto) Eos % (Auto) Baso % (Auto) Absolute Neuts (auto) Absolute Lymphs (auto) Absolute Monos (auto) Absolute Eos (auto) Absolute Basos (auto) Absolute Nucleated RBC Nucleated RBC % Sodium Potassium Chloride Carbon Dioxide Anion Gap BUN Creatinine Est GFR ( Amer) Est GFR (Non-Af Amer) BUN/Creatinine Ratio Glucose Calcium Magnesium Albumin 4740 CSF Albumin 56.9 H CSF IgG 7.3 Serum IgG/Albumin 0.24 CSF IgG/Albumin 0.13 CSF IgG Index 0.54 CSF IgG Synthesis Rate 4.87 Ser Oligoclonal Bands 0 CSF Oligoclonal Bands 0 Oligoclonal Prot Interp 0 CSF VDRL Negative CSF HSV I (PCR) Negative CSF Herpes II DNA (PCR) Negative IgG 1140 Anti-Nuclear Antibody 0.7 Proteinase 3 (PR3) < 0.2 Myeloperoxidase Ab < 0.2 10/04/19 10/04/19 08:12 08:12 WBC 6.2 RBC 4.46 Hgb 13.6 Hct 39 MCV 86 MCH 31 MCHC 35 RDW 13 Plt Count 241 MPV 9.1 Neut % (Auto) 53.4 Lymph % (Auto) 33.6 [place] % (Auto) 9.3 Eos % (Auto) 2.7 Baso % (Auto) 1.0 Absolute Neuts (auto) 3.3 Absolute Lymphs (auto) 2.1 Absolute Monos (auto) 0.6 Absolute Eos (auto) 0.2 Absolute Basos (auto) 0.1 Absolute Nucleated RBC 0.0 Nucleated RBC % 0.0 Sodium 141 Potassium 3.9 Chloride 105 Carbon Dioxide 30 Anion Gap 6 BUN 12 Creatinine 0.80 Est GFR ( Amer) 106.6 Est GFR (Non-Af Amer) 88.1 BUN/Creatinine Ratio 15.0 Glucose 85 Calcium 9.7 Magnesium 2.0 Albumin CSF Albumin CSF IgG Serum IgG/Albumin CSF IgG/Albumin CSF IgG Index CSF IgG Synthesis Rate Ser Oligoclonal Bands CSF Oligoclonal Bands Oligoclonal Prot Interp CSF VDRL CSF HSV I (PCR) CSF Herpes II DNA (PCR) IgG Anti-Nuclear Antibody Proteinase 3 (PR3) Myeloperoxidase Ab Assessment: 1. Subacute headache and persistent CSF pleocytosis, taken together she has chronic meningitis; Diff dx includes Lyme and syphilis (both negative), Leptospirosis, Enterovirus, HSV, VZV (negative previously), less likely TB, crypto or Histo. Non infectious ie Sarcoid, autoimmune or malignant. Plan: 1. continue valtrex pending HSV and VZV repeat testing. [facility] encephalitis panel was resent which covers infectious except for Lyme but her Lyme blood testing is negative, CSF Lyme testing is not needed to rule TURBINE ENGINE ASSEMBLER infection in her case. DC ceftriaxone. LCV time course seems wrong for LCV based on my review of literature, but testing sent. 2. HIV Ab , Lepto, Crypto, Histo testing sent as well.
[2019-10-04 22:43] LABS: HIV 4th Generation Nonreactive (Nonreactive)
[2019-10-05] MEDS: Levothyroxine TAB* 25 MCG TAB PO SCH (04:51)
[2019-10-05] MEDS ORDERED: ValACYclovir (*) 1 GM TAB PO SCH ×2 (08:00→13:00)
[2019-10-05] MEDS: Cyanocobalamin TAB* 500 MCG PO SCH (08:08)
[2019-10-05] MEDS: Escitalopram * 20 MG TABLET PO SCH (08:08)
[2019-10-05] MEDS ORDERED: NS 0.9% 1000 ML** 1,000 ML IV SCH (12:00)
[2019-10-05 13:32] LABS: Activated Partial Thrombo Time 43.7 seconds (26.0-38.0); INR 1.17 (0.82-1.09)
[2019-10-05 14:01] LABS: LDH 161 U/L (140-271); Rheumatoid Factor < 10 IU/mL (<15)
[2019-10-05 15:26] VITALS: BP 121/62
--- NOTE | 2019-10-05 16:31 | CONS ---
NEUROLOGY CONSULT FOLLOWUP: DATE OF FOLLOWUP: 10/05/19 HOSPITALIST: Dr. Muller. CHIEF COMPLAINT: Headaches, meningitis. INTERVAL HISTORY: Since yesterday, Tg feels no better. She feels her vision is still blurry and no better or worse than yesterday. There is no improvement in her headache intensity. MEDICATIONS: Reviewed and she is on: 1. 1000 mcg of vitamin B12 per day. 2. Lexapro 20 mg p.o. daily. 3. Levothyroxine 25 mcg p.o. daily. 4. Zofran 4 mg IV q.6 hours as needed for nausea. 5. Valtrex 1 g p.o. t.i.d. PHYSICAL EXAM: Tg was not examined today. She is alert and able to give a very detailed history. She is steady on her feet. LABORATORY DATA: Additional laboratory data back today is notable for a negative spinal fluid cryptococcal antigen from 10/02/19. Coccidioides antigen on spinal fluid was insufficient fluid. Herpes simplex 1 and 2 PCR are both negative on spinal fluid from 10/02/19. Rheumatoid factor is negative, JEFF is negative, proteinase 3 and myeloperoxidase antibodies are all negative from 10/03/19. HIV 1 and 2 antibody testing is nonreactive. IMPRESSION AND PLAN: Impression is that of chronic meningitis with papilledema. I had ordered a repeat lumbar puncture to obtain opening pressure and more fluid for cytology when it was report that there was still no bed available in [place] this morning. Just a few minutes ago, I was advised that there is a bed and they are arranging transportation. I therefore will cancel the lumbar puncture which was just about to be done by Dr. Patel and advised him accordingly. This way, repeat lumbar puncture can be done in [place] where their infectious disease consultants and neurologists can make sure that the studies that they wish to be done can be done without having to repeat the spinal tap more than once. I have discussed this with Tg and her parents who are now present in the room. I will try to find out how she is doing next week when [place] has a chance to evaluate her. [id number]/[facility] #: [id number] AKANKSHA
--- NOTE | 2019-10-05 17:03 | TRS ---
DATE OF ADMISSION: 10/02/2019. DATE OF TRANSFER: 10/05/2019. ATTENDING PHYSICIAN ON THE DAY OF DISCHARGE: Dr. Diego Muller. PRIMARY CARE PHYSICIAN: "Leonor" at [facility]. CONSULTING NEUROLOGIST: Dr. Wagner Canela and Dr. Raffi Lopes. CHIEF COMPLAINT: Headaches and intermittent weakness, numbness, nausea, vomiting, neck pain. PRINCIPAL DIAGNOSIS: Continued aseptic meningitis of undetermined etiology with concern for papilledema. HISTORY OF PRESENT ILLNESS/HOSPITAL COURSE: Tg Coleman is a 23-year-old female with a past medical history of anxiety, depression, hypothyroidism, and recent diagnosis of viral meningitis of unknown origin when she was admitted between 09/12/2019 and 09/13/2019 of which her lumbar puncture demonstrated lymphocyte- predominant pleocytosis with elevated WBC's of 175 and protein of 52 with normal glucose. All other studies were negative, including a viral encephalopathy panel, HSV-I and two PCR's. Oligoclonal bands were 2. Lyme IgG was negative, cryptococcus was negative, and enterovirus RNA was negative. Her symptoms at the time had been severe headaches, nausea, vomiting and actually had improved remarkably after getting magnesium, steroids, ketorolac, and Reglan in the emergency room that first day, even prior to her lumbar puncture. She was feeling much better on discharge, but most of her symptoms slowly began to return. She is a somewhat poor historian in terms of the exact timing. Nausea has not been as bad as before, intermittently every other day and randomly as opposed to not being able to keep anything down prior to the last admission. She has since developed numbness and tingling in her bilateral legs in the mornings only and intermittently in her left hand, sometimes the right hand, which could last approximately 35 minutes. She has fallen four times. She has had continued headaches, dizziness, head spinning, blurriness in her vision, but no double vision. She followed up with Natanael Charles NP of Neurology and was referred to the emergency room for further repeat LP. This again showed similar initial CSF studies with elevated white blood count of 158 with 94 percent lymphocytes, protein elevated at 88, and glucose within normal limits at 55. She was recommended for admission and had a brain MRI which showed leptomeningeal enhancement and lack of sulcal CSF suppression on T2 FLAIR postcontrast sequencing which is nonspecific, but yet compatible with provided history of meningitis; ventricles are similar in caliber compared to comparison imaging on September 12. She had a cervical spine MRI which demonstrated normal signal and volume. She had an MRV of the head with and without contrast which showed nonspecific nonaggressive rounded filling defect in the right transverse sinus is in a typical location for an arachnoid granulation; otherwise, the dural venous sinuses are globally diminutive, but grossly patent; correlate with CSF opening pressures (of note these unfortunately were not obtained with the LP in the emergency room). Upon initial evaluation by neurologist, there was concern for papilledema and the patient had repeat CSF studies some of which have returned again, which would include again a negative HSV-I and II DNA, VDRL negative, Lyme total antibody ( from peripheral blood) was negative. HIV was also negative. Pending studies include West Nile Virus, CSF Lyme, IgG, anti-double stranded DNA. She had CSF West Nile, RNA, and IgG and IgM. The [facility] encephalitis panel which was all negative previously and which included CMV. Angiotensin converting enzyme pending. Oligo proteins were 0. Culture showed 3+ nucleated cells. No organisms on gram stain. Fungal culture is pending. Acid- fast bacillus was negative. Unfortunately not enough CSF fluid was available to run cytology. Additional sent out labs that are still pending also include paraneoplastic panel, histoplasma antigen in urine, microbacterial culture, leptospira IgM, lymphocytic choriomeningitis, virus antibody IgG, IgM, protein electrophoresis. Given the concern from Neurology about the papilledema seen on exam and her ophthalmologic symptoms, Dr. Lopes recommended transfer to a tertiary care center for access to ophthalmology and possibly even neuro-ophthalmology. She continued to have symptoms throughout the course, including headaches, vision changes, intermittent nausea. She was treated empirically with Ceftriaxone until the peripheral Lyme came back negative, then this was stopped. Valacyclovir 1 gm p.o. q.8 hours has been continued until VSV can be (again) confirmed negative. Of note, HSV has been negative twice now. A bed was not initially available until October 05. Additional studies have returned negative, including JEFF which is 0.7, proteinase 3 was less than 0.2, myeloperoxidase was than 0.2 and rheumatoid factor was less than 10. Of note, she has had elevated coagulation studies of INR 1.17 and APTT of 43.7. These were obtained the day of discharge in anticipation of a repeat LP to get further fluid for cytology. INR was also elevated on September 12 at 1.30 and this should be further investigated. She had been hemodynamically stable and afebrile. On the initial August admission, she had been B12 deficient, but this has improved greatly since supplementation. DISCHARGE MEDICATIONS: 1. Lexapro 20 mg daily. 2. Vitamin B12 1,000 mcg daily. 3. Synthroid 25 mcg p.o. daily. 4. Valacyclovir 1 gm p.o. q.8 hours. CONDITION ON DISCHARGE: Stable. DISPOSITION: To [facility]. DIET: no restriction TIME SPENT ON DISCHARGE: 45 minutes. [id number]/[facility] #: [id number] AKANKSHA
[2019-10-05 23:46] LABS: CSF West Nile Virus RNA (PCR) Negative (Negative); West Nile Virus Source CSF
[2019-10-06 12:09] LABS: Albumin 3.8 g/dL (3.4-4.7); Albumin/Globulin Ratio 1.19; Gamma Globulin 1.2 g/dL (0.6-1.6)
[2019-10-08 15:55] LABS: CSF West Nile Virus IgG Ab Negative (Negative); CSF West Nile Virus IgM Ab Negative (Negative)
== END 2019-10-05 17:00 | disposition short-term general hospital (02) | DRG 50 ==
LOC: ED 11:31 → MED 15:06 → OBSVTOIN 10-03 22:39
PROVIDERS: ADMIT Internal Medicine; ATTEND Internal Medicine
PROC: 009U3ZX Drainage of Spinal Canal, Percutaneous Approach, Diagnostic (ICD-10-PCS; principal; 2019-10-03)
DX: G03.0 Nonpyogenic meningitis (principal); H47.11 Papilledema associated with increased intracranial pressure; E03.9 Hypothyroidism, unspecified; F32.9 Major depressive disorder, single episode, unspecified; F41.9 Anxiety disorder, unspecified; G43.909 Migraine, unspecified, not intractable, without status migrainosus; D72.820 Lymphocytosis (symptomatic); E53.8 Deficiency of other specified B group vitamins; E66.9 Obesity, unspecified; Z68.30 Body mass index [BMI] 30.0-30.9, adult; Z88.8 Allergy status to other drugs, medicaments and biological substances; Z79.890 Hormone replacement therapy; Z79.899 Other long term (current) drug therapy
CPT/HCPCS: 36415; 70546; 70553; 72156; 80048; 80053; 82164; 82607; 82784; 82945; 83516; 83615; 83735; 83916; 84155; 84157; 84165; 84702; 85025; 85610; 85652; 85730; 86038; 86140; 86225; 86255; 86431; 86592; 86618; 86635; 86720; 86727; 86788; 86789; 87070; 87102; 87116; 87205; 87206; 87385; 87389; 87529; 87798; 87899; 88112; 89051; 99284; A9270-GY; A9579; G0378; J0696; J2405